=== PATIENT | male | born 1935 | race Caucasian/White ===

== ENCOUNTER 2017-01-06 07:28 | Outpatient (CLI) | payer MEDICARE, BC ==
[~2017-01-06] VITALS: Ht 172.7 cm; Wt 86.4 kg
--- NOTE | ~2017-01-06 | HEMODYNAMI ---
PATIENT:GARRETT HARLEY MEDICAL RECORD: [id number] : 39 LOCATION:PING ADMISSION DATE: 01/06/17 Generatedon:01/06/201710:24 Patient name: GARRETT HARLEY Patient #: [id number] SSN: D OB: 1935 Date of study: 01/06/2017 Page: Of Hemodynamic Procedure Report Patient Data Patient Demographics Procedure consent was obtained First Name: GARRETT Gender: Male Last Name: CHERRI : 1935 [facility] Initial: DESIREE Age: 81 year(s) Patient #: [id number] Race: Additional ID: [id number] Contact details Address: [place] [place] [address] State: [place] City: [place] Zip code: [address] Past Medical History Allergies Allergen Reaction Date Comments Reported TAWANA inhibitors 11/08/2015 TAWANA inhibitors, Cardura, Dyazide, iodine Other allergy 01/06/2017 Cardura, Levaquin, HCTZ, Triamterene, Pneumonia vaccine Iodine 01/06/2017 Admission Admission Data Admission Date: 01/06/2017 Admission Time: 7:28 Height (in.): 68 BSA: 2 (m2) Height (cm.): 172.72 BMI: 28.89 (kg/m2) Weight (lbs.): 190 Weight (kg.): 86.18 Lab Results Lab Result Date: 01/06/2017 Lab Result Time: 0:00 Biochemistry Name Units Result Min Max Creatinine mg/dl 1.7 --(----)-* 0.6 1.3 CBC Name Units Result Min Max Hemoglobin g/dl 10.4 *-(----)-- 13.5 17.5 Procedure Procedure Types Cath Procedure Diagnostic Procedure LHC LHC w/Coronaries w/Grafts PCI Procedure SVG-BMS/ENID Initial Miscellaneous Procedures Moderate Sedation up to 30 minutes Peripheral Cath Diagnostic Procedure Cath Peripheral Olfxl-Nqsaolb-Naz-Off Procedure Description Procedure Date Procedure Date: 01/06/2017 Procedure Start Time: 9:57 Procedure End Time: 10:24 Procedure Staff Name Function Ranjit Mejia MD Performing Physician Farzana Armas RT Scrub Eleazar Nava RN Nurse Karoline Boateng RT Monitor Procedure Data Cath Procedure Fluoroscopy Diagnostic fluoroscopy Total fluoroscopy Time: 8.7 time: 8.7 min min Diagnostic fluoroscopy Total fluoroscopy dose: dose: 2247 mGy 2247 mGy Contrast Material Contrast Material Type Amount (ml) Isovue 300 175 Entry Location Entry Primary Successful Side Size Upsize Upsize Entry Closure Succes sful Closure Location (Fr) 1 (Fr) 2 (Fr) Remarks Device Remarks Femoral Right 5 Fr 6 Fr Exoseal artery Short Estimated blood loss: 10 ml Diagnostic catheters Device Type Used For End Catheter Placement Cordis 5Fr Pigtail LV Angiography Catheter (MP) Cordis 5Fr Pigtail Abdominal Catheter (MP) aortogram with runoff Cordis 5Fr JL 4.0 Left Coronary Catheter (MP) Angiography Cordis 5Fr 3DRC Catheter Internal mammary (MP) arteriography Diagnostic Infinity 5Fr Right Coronary AR 2 MOD catheter Angiography Diagnostic Infinity 5Fr SVG Angiography AR 2 MOD catheter Diagnostic Infinity 5Fr SVG Angiography AR 2 MOD catheter Diagnostic Infinity 5Fr SVG Angiography MPA-2 catheter Procedure Complications No complications Procedure Medications Medication Administration Route Dosage Oxygen NC 2 l/min Heparin Flush Bag added to field 2 bags (1000units/500ml NS) 0.9% NaCl I.V. 100 ml/hr Fentanyl I.V. 50 mcg Versed I.V. 1 mg Fentanyl I.V. 50 mcg Versed I.V. 1 mg Heparin Bolus I.V. 4000 units Hemodynamics Rest BSA: 2 (m2) HGB: 10.4 (g/dl) O2 Consumption: Estimated: 206.13 (ml/min) O2 Consu mption indexed: Estimated:103.06 (ml/min/m) Heart Rate: 40 (bpm) Pressure Samples Time Site Value (mmHg) Purpose Heart Use Rate(bpm) 9:59 LV 133/39,51 Snapshot 61 Snapshots Pre Cath Intra NCS Post Cath Vital Signs Time Heart Resp SPO2 NIBP (mmHg) Rhythm Pain Sedation Rate (ipm) (%) Status Level (bpm) 9:28:09 81 20 96 151/80(125) NSR 0 (11) 10(A) , No pain 9:32:29 60 20 97 148/78(132) NSR 0 (11) 10(A) , No pain 9:36:47 59 19 98 150/80(122) NSR 0 (11) 10(A) , No pain 9:41:06 60 17 94 140/79(113) NSR 0 (11) 10(A) , No pain 9:45:21 59 16 95 134/73(114) NSR 0 (11) 10(A) , No pain 9:49:37 60 17 97 139/70(115) NSR 0 (11) 10(A) , No pain 9:53:55 60 16 98 135/67(112) NSR 0 (11) 10(A) , No pain 9:58:09 60 17 99 135/71(115) NSR 0 (11) 9(A) , No pain 10:02:25 60 18 96 133/65(105) NSR 0 (11) 9(A) , No pain 10:06:39 62 18 92 126/63(100) NSR 0 (11) 9(A) , No pain 10:10:51 60 17 92 118/65(96) NSR 0 (11) 9(A) , No pain 10:15:03 64 18 93 111/61(86) NSR 0 (11) 9(A) , No pain 10:19:09 60 18 94 117/66(95) NSR 0 (11) 9(A) , No pain 10:23:19 59 14 94 121/63(99) NSR 0 (11) 9(A) , No pain Medications Time Medication Route Dose Verified Delivered Reason Notes Effectiveness by by 9:44:11 Oxygen NC 2 Eleazar Bush Per physician l/min Elijah Nava RN RN 9:44:19 Heparin Flush added 2 Eleazar Bush used for Bag to bags Elijah Nava RN procedure (1000units/500ml field RN NS) 9:44:29 0.9% NaCl I.V. 100 Eleazar Bush Per physician ml/hr Elijah Nava RN RN 9:56:51 Fentanyl I.V. 50 Eleazar Bush for sedation mcg Elijah Nava RN RN 9:56:58 Versed I.V. 1 mg Eleazar Bush for sedation Elijah Nava RN RN 10:03:56 Fentanyl I.V. 50 Eleazar Bush for sedation mcg Elijah Nava RN RN 10:03:58 Versed I.V. 1 mg Eleazar Bush for sedation Elijah Nava RN RN 10:08:50 Heparin Bolus I.V. 4000 Eleazar Bush for units Elijah Nava RN anticoagulation telehealth coordinator Log Time Note 8:49:21 Patient Height : 172.72 cm 8:49:23 Patient Weight : 86.18 kg 9:07:31 Eleazar Nava RN sent for patient. Start room use. 9:07:32 Time tracking: Regular hours 9:07:36 Plan of Care:Hemodynamics will remain stable., Cardiac rhythm will remain stable., Comfort level will be maintained., Respiratory function will remain adequate., Patient/ family verbilizes understanding of procedure., Procedure tolerated without complication., Recovers from procedure without complications.. 9:26:55 Vital chart was started 9:29:52 Patient received from Pre/Post Procedure Room to [facility]3] 2 Alert and oriented. Tansferred to table in Supine position. 9:29:53 Warm blankets applied, and bishnu hugger turned on for patient comfort. 9:29:53 Correct patient and procedure confirmed by team. 9:29:54 Signed procedure consent form obtained from patient. 9:29:55 ECG and BP/O2 sat monitors applied to patient. 9:30:12 Rhythm: paced 9:30:14 Full Disclosure recording started 9:30:24 H&P Date Dictated: 01/01/2017 Within 30 days and on chart., H&P Addendum completed by physician on day of procedure. (MUST COMPLETE FOR ALL OUTPATIENTS). 9:30:47 Pre-procedure instructions explained to patient. 9:30:47 Pre-op teaching completed and patient verbalized understanding. 9:30:50 Family in patients room. 9:31:17 Patient NPO since Midnight. 9:33:29 Patient allergic to Other allergyCardura, Levaquin, HCTZ, Triamterene, Pneumonia vaccine 9:33:33 Patient allergic to Iodine 9:33:40 Is the patient allergic to Iodine/contrast media? Yes. 9:33:49 Was the patient premedicated? Yes 9:34:20 Is patient on blood thinner?Yes 9:34:22 ACC The patient was administered the following blood thiners within the last 24 hours: ACCPlavix 9:34:24 Patient diabetic? No. 9:40:37 Previous problem with sedation/anesthesia? No ? 9:40:38 Snore? Yes 9:40:39 Sleep apnea? No 9:40:39 Deviated septum? No 9:40:40 Opens mouth fully? Yes 9:40:46 Sticks out tongue? Yes 9:40:48 Airway obstruction? No ? 9:40:51 Dentures? Yes iN 9:40:57 Pre procedure: right dorsailis pedis pulse Doppler 9:40:59 Patient pain scale 0/10 ?. 9:41:33 IV patent on arrival in left hand with 0.9% NaCl at [facility]. 9:41:50 Lab Result : Creatinine 1.7 mg/dl 9:41:50 Lab Result : Hemoglobin 10.4 g/dl 9:41:53 Lab results completed and on chart. 9:41:57 Bilateral groins area was prepped with chlora-prep and draped in sterile fashion 9:41:58 Alarms reviewed by R. N. 9:41:58 Sharps counted by scrub and verified by R.N. 9:44:11 Oxygen 2 l/min NC was administered by Eleazar Nava RN; Per physician; 9:44:19 Heparin Flush Bag (1000units/500ml NS) 2 bags added to field was administered by Eleazar Nava RN; used for procedure; 9:44:29 0.9% NaCl 100 ml/hr I.V. was administered by Eleazar Naav RN; Per physician; 9:48:54 Baseline sample Acquired. 9:56:18 Final Timeout: patient, procedure, and site verified with staff and physician. All members of the team are in agreement. 9:56:19 Right groin site verified by team. 9:56:22 Physical assessment completed. ASA score P 2 - A patient with mild systemic disease as per Ranjit Mejia MD. 9:56:24 Sedation plan: IV Moderate Sedation Versed, Fentanyl 9:56:51 Fentanyl 50 mcg I.V. was administered by Eleazar Nava RN; for sedation; 9:56:58 Versed 1 mg I.V. was administered by Eleazar Nava RN; for sedation; 9:57:00 Procedure started. 9:57:05 Local anesthetic to right femoral artery with Lidocaine 2% by Ranjit Mejia MD.INITIAL ACCESS ONLY 9:57:13 A 5 Fr sheath was inserted into the Right Femoral artery 9:57:43 Use device set Femoral Dx 9:57:43 Acist Syringe opened to sterile field. 9:57:44 Bag Decanter opened to sterile field. 9:57:44 Medline Cath Pack opened to sterile field. 9:57:45 Terumo 5Fr [place] Sheath opened to sterile field. 9:57:45 [place] 260cm J .035 wire opened to sterile field. 9:57:46 Acist Hand Control opened to sterile field. 9:57:47 Acist Manifold opened to sterile field. 9:57:47 Diagnostic Infinity 5Fr Multipack catheter opened to sterile field. 9:57:48 Tegaderm 4 x 4 opened to sterile field. 9:57:54 A Cordis 5Fr Pigtail Catheter (MP) was advanced over the wire and used for LV Angiography. 9:59:20 LV gram done using BENDER 9:59:23 Injector settings: Ml/sec: 10, Volume: 20, 9:59:29 EF : 45 % 9:59:48 A Cordis 5Fr Pigtail Catheter (MP) was advanced over the wire and used for Abdominal aortogram with runoff. 10:00:19 Catheter removed. 10:01:20 A Cordis 5Fr JL 4.0 Catheter (MP) was advanced over the wire and used for Left Coronary Angiography. 10:01:41 Catheter removed. 10:03:21 A Cordis 5Fr 3DRC Catheter (MP) was advanced over the wire and used for Internal mammary arteriography.TO LAD 10:03:56 Fentanyl 50 mcg I.V. was administered by Eleazar Nava RN; for sedation; 10:03:58 Versed 1 mg I.V. was administered by Eleazar Nava RN; for sedation; 10:04:16 Catheter removed. 10:04:52 A Diagnostic Infinity 5Fr AR 2 MOD catheter was advanced over the wire and used for Right Coronary Angiography. 10:05:14 A Diagnostic Infinity 5Fr AR 2 MOD catheter was advanced over the wire and used for SVG Angiography.TO CIRC 10:05:48 A Diagnostic Infinity 5Fr AR 2 MOD catheter was advanced over the wire and used for SVG Angiography.TO DIAG 10:06:59 Catheter removed. 10:07:13 Terumo 6Fr [place] Sheath opened to sterile field. 10:07:14 [email or web address] BasixCompak Inflation Kit opened to sterile field. 10:07:14 Lane Whisper J 300cm 0.014 guide wire opened to sterile field. 10:08:50 Heparin Bolus 4000 units I.V. was administered by Eleazar Nava RN; for anticoagulation; 10:09:36 Medtronic Launcher 6Fr AR 2.0 SH guide catheter opened to sterile field. 10:09:52 Sheath upsized to a 6 Fr Short. 10:10:34 6 Fr AR 2.0 SH guide catheter was inserted over the wire 10:10:39 wHISPER wire advanced. 10:11:33 Inflation Number: 1 A Kartik OTW 2.25 x 18 stent was prepped and advanced across the Aorta Left -> 1st Diag. The stent was deployed at 17 TYRONE for 0:08 (min:sec). 10:12:04 Stent catheter was removed intact over wire. 10:12:05 Wire removed. 10:12:06 Guide catheter removed. 10:12:42 A Diagnostic Infinity 5Fr MPA-2 catheter was advanced over the wire and used for SVG Angiography.TO RCA 10:15:49 Catheter removed. 10:16:06 Sheath removed intact; hemostasis achieved with Exoseal to the Right Femoral artery. 10:16:13 Cordis 6Fr Exoseal opened to sterile field. 10:16:43 Procedure ended.(Physican Out) 10:17:11 Fluoroscopy time 08.70 minutes. 10:17:15 Flurop Dose total: 2247 10:17:15 Fluoroscopy dose: 2247 mGy 10:17:18 Contrast amount:Isovue 300 175ml. 10:17:19 Sharps counted by scrub and verified by R.N. 10:17:21 Insertion/operative site no bleeding no hematoma. 10:17:35 Post-op/insertion site Right Femoral artery dressed using a 4 x 4 and Tegaderm. 10:17:38 Post right femoral artery:stable, clean and dry 10:17:39 Post Procedure Pulses reassessed and unchanged 10:17:41 Post-procedure physical assessment completed. ASA score P 2 - A patient with mild systemic disease as per Ranjit Mejia MD. 10:17:46 Post procedure rhythm: unchanged. 10:17:48 Estimated blood loss: 10 ml 10:17:49 Post procedure instruction explained to patient.Patient verbalizes understanding. 10:17:50 Patient needs reinforcement of post procedure teaching. 10:18:09 Procedure type changed to Cath procedure, Diagnostic procedure, LHC, LHC w/Coronaries w/Grafts, PCI procedure, SVG-BMS/ENID Initial, Miscellaneous Procedures, Moderate Sedation up to 30 minutes, Peripheral Cath Diagnostic Procedure, Cath Peripheral, Vtczw-Klboscv-Hxa-Off 10:18:17 Procedure Complication : No complications 10:18:20 See physician's report for complete and final results. 10:20:29 Procedure and supply charges have been captured, reviewed, submitted and are correct. 10:24:00 Vital chart was stopped 10:24:01 Report given to Pre/Post Procedure Room. 10:24:06 Patient transfered to Pre/Post Procedure Room with Stretcher. 10:24:09 Procedure ended. 10:24:09 Full Disclosure recording stopped 10:24:14 End room use (Document Last) Intervention Summary Intervention Notes Time ActionType Lesion and Equipment Action# Pressure Duration Attributes Used 10:11:33 Place stent Aorta Left Kartik OTW 1 17 00:08 -> 1st Diag 2.25 x 18 stent Device Usage Item Name Manufacture Quantity Catalog Hospital Part Current Minimal Lot# / Number Charge Number Stock Stock Serial# Code Acist Acist 1 [id number] 224246 842581 20 Syringe Medical Systems Inc Bag Microtek 1 2002S 375634 15519 439728 5 Tongtech Inc. Medline Cardinal 1 [id number] 529560 71281 092822 5 Cath Pack Health Terumo 5Fr Terumo 1 [id number] 609661 485960 948926 [address] [place] [address] [facility] [address] Johnnie 1 [id number] 046096 733331 291367 30 260cm J .035 wire Acist Hand Acist 1 29478 271235 555590 038843 5 Meme Apps Medical Systems Inc Acist Acist 1 70906 653774 021416 517053 5 Hipscan Medical Systems Inc Diagnostic Cardinal 1 [id number] 962134 26534 847179 30 PapayaMobile 5Fr Multipack catheter Tegaderm 4 3M 1 1626W 030739 973002 960235 5 x 4 Cordis 5Fr Cardinal 1 586218 5 Pigtail Health Catheter (MP) Cordis 5Fr Cardinal 1 179967 5 JL 4.0 Health Catheter (MP) Cordis 5Fr Cardinal 1 190259 5 3DRC Health Catheter (MP) Diagnostic Cardinal 1 [id number] 974058 002215 094963 20 Infinity Health 5Fr AR 2 MOD catheter Terumo 6Fr Terumo 1 [id number] 639998 306725 545849 40 [place] Sheath Merit Merit 1 [id number] 010258 613875 010623 [address] Medical Infl[address] 1 [id number] 352605 140835 548952 5 Whisper J Vascular 300cm 0.014 guide wire Medtronic Medtronic 1 [id number] 774203 42229 430854 1 Launcher 6Fr AR 2.0 SH guide catheter [place] OTW Medtronic 1 [id number] 829483 21627 509836 5 [id number] 2.25 x 18 stent Diagnostic Cardinal 1 [id number] 610312 038571 056267 5 Infinity Health 5Fr MPA-2 catheter Cordis 6Fr Cardinal 1 [id number] 377534 612141 617241 10 [facility] Inspherion Signature Audit [place] Stage Time Signature Unsigned Intra-Procedure 01/06/2017 Karoline 10:24:37 AM Counts RT(R) Signatures Monitor : Karoline Signature : Counts RT Date : Time : [id number] [place] [address]
[~2017-01-06 07:28] MED LIST: ANUSOL-HC25 MG RC; BAYER CHEWABLE81 MG PO; BETAPACE 120 M120 MG PO; BETAPACE 80 MG80 MG PO; BETAPACE160 MG PO; COUMADIN5 MG PO; GRAPESEED EXTRACT PO; K-TAB10 MEQ PO; LASIX40 MG PO; LOTENSIN40 MG PO; PLAVIX75 MG PO; PRILOSEC20 MG PO
[2017-01-06] MEDS ORDERED: BAYER CHEWABLE81 MG PO (07:47)
[2017-01-06 08:01] VITALS: BP 137/70; Ht 172.7 cm; Wt 86.4 kg
[2017-01-06 08:16] LABS: BASOPHILS 0 % (0-2); EOSINOPHILS 0 % (0-7); HEMATOCRIT 33.3 % (42.0-54.0); HEMOGLOBIN 10.4 g/dL (13.5-17.5); IMMATURE GRANULOCYTES 0.5 % (0-5); MCH 26.9 pg (26.0-34.0); MCHC 31.2 g/dL (31.0-37.0); MEAN PLATELET VOLUME 9.9 fL (7.4-10.4); MONOCYTES 2.1 % (2-11); NEUTROPHILS 84.4 % (40-80); RBC 3.87 10x6/uL (4.20-6.10); RDW 15.7 % (11.5-14.5); WBC 4.4 10x3/uL (4.8-10.8)
[2017-01-06 08:20] LABS: PLATELET COUNT 210 10x3/uL (130-400)
[2017-01-06 08:33] LABS: ANION GAP 14.6 mmol/L (8-16); CALCIUM 8.2 mg/dL (8.5-10.1); CARBON DIOXIDE 23.5 mmol/L (21.0-32.0); CREATININE - SERUM 1.7 mg/dL (0.6-1.3); POTASSIUM - SERUM 4.1 mmol/L (3.5-5.1)
[2017-01-06 09:47] LABS: INR 1.39 (0.85-1.17)
--- NOTE | 2017-01-06 10:50 | NUR ---
2L NC, NO RESP DISTRESS NOTED. RIGHT GROIN 6F EXOSEAL CDI, NO BLEEDING OR HEMATOMA NOTED. NO C/O CHEST PAIN OR NAUSEA. APPRENTICE PAINTER BRUSH SHOWS PACED NSR @ 60. INSTRUCTED PT TO KEEP HEAD FLAT ON PILLOW AND RIGHT LEG STRAIGHT. VSS.
--- NOTE | 2017-01-06 11:20 | NUR ---
2L NC, NO RESP DISTRESS NOTED. RIGHT GROIN 6F EXOSEAL CDI, NO BLEEDING OR HEMATOMA NOTED. VSS. DR. TORRES AT BEDSIDE SPEAKING WITH PT AND FAMILY. CALL LIGHT WITHIN REACH.
--- NOTE | 2017-01-06 11:35 | NUR ---
2L NC, NO RESP DSITRESS NOTED. RIGHT GROIN 6F EXOSEAL CDI, NO BLEEDING OR HEMATOMA NOTED. VSS. NO C/O CHEST PAIN OR NAUSEA. WILL CONTINUE TO MONITOR.
--- NOTE | 2017-01-06 12:05 | NUR ---
NO C/O CHEST PAIN OR NAUSEA. RIGHT GROIN 6F EXOSEAL CDI, NO BLEEDING OR HEMATOMA NOTED. VSS. CALL LIGHT WITHIN REACH.
--- NOTE | 2017-01-06 12:53 | NUR ---
1250 PT MOSES PO FLUIDS WITH NO C/O. DRESSING TO RIGHT GROIN IS CDI, NO BLEEDING OR HEMATOMA NOTED. RR EVEN AND UNLABORED. VSS. AT BEDSIDE, PT DENIES NEEDS AT THIS TIME.
--- NOTE | 2017-01-06 13:31 | NUR ---
1330 DRESSING TO RIGHT GROIN IS CDI, AREA IS SOFT AND NONTENDER. RR EVEN AND UNLABORED. PT DENIES ANY C/O. FAMILY AT BEDSIDE. CALL LIGHT IN REACH.
--- NOTE | 2017-01-06 14:29 | NUR ---
1415 PT MOSES SANDWICH WITH NO C/O NAUSEA. IV DC'D WITH CATH INTACT. DRESSING TO RIGHT GROIN REMAINS CDI, AREA IS SOFT AND NONTENDER.
--- NOTE | 2017-01-06 15:22 | NUR ---
1430 PT SITTING UPRIGHT, STILL EATING SANDWICH AND GRAPES, DENIES ANY C/O. DRESSING TO RIGHT GROIN IS CDI, AREA IS SOFT AND NONTENDER. AT BEDSIDE. REVIEWED DC INSTRUCTIONS WITH PT AND WHO VERBALIZE UNDERSTANDING. 1445 IV DC'D WITH CATH INTACT. PT IS DRESSING FOR DC TO HOME. 1450 ASSISTED PT TO THE BATHROOM, PT VOIDED QS. PT ESCORTED TO PRIVATE AUTO VIA WC BY NURSE WITH SON DRIVING HIM HOME. PT DENIES ANY C/O AT TIME OF DC.
[2017-01-08] MEDS ORDERED: PREDNISONE20 MG PO (07:38)
--- NOTE | 2017-01-11 12:22 | OP ---
PATIENT NAME: GARRETT HARLEY MEDICAL RECORD: [id number] :37 LOCATION:D.CAT ADMISSION DATE: SURGEON: JETT TORRES MD OPERATION DATE: 01/06/17 PROCEDURES: 1. Percutaneous transluminal coronary angioplasty stent left anterior descending diagonal through vein graft. 2. Left heart catheterization. 3. Selective coronary angiography. 4. Left ventriculogram. 5. Vein graft angiography. 6. Left internal mammary artery angiography. INDICATION: 1. Angina. 2. Coronary artery disease. PROCEDURE IN DETAIL: After informed consent was obtained and after detailed explanation of risks, benefits, as well as alternative therapies, the patient elected to proceed with angiogram and angioplasty. The right femoral area was prepped and draped in a normal sterile fashion. The right femoral artery was cannulated via modified Seldinger technique with placement of 6-Nepali sheath. All catheters exchanged through this sheath. FINDINGS: The left ventriculogram was performed in standard 30 degree BENDER view, reveals preserved cardiac wall motion. Ejection fraction 50%. SELECTIVE CORONARY ANGIOGRAPHY: 1. The left main has a 90% stenosis distally. 2. Left anterior descending is totally occluded. 3. Left circumflex is totally occluded. 4. Right coronary artery is totally occluded. 5. The left internal mammary artery to the left anterior descending is patent. The distal left anterior descending is widely patent. Previously placed stent is widely patent. 6. Vein graft to the left anterior descending diagonal is patent. However, the stent distal to the vein graft has 80% in-stent restenosis. 7. Vein graft to the circumflex is widely patent. Distal circumflex is widely patent. 8. Vein graft to the right coronary artery is patent. There is a relatively large PLV branch that has an 80+% stenosis at its ostium. PTCA STENT OF THE LEFT ANTERIOR DESCENDING DIAGONAL THROUGH THE VEIN GRAFT: The stent used is a 2.25 X 18 millimeter [place]. The result was 0% residual stenosis. OVERALL IMPRESSION: Successful percutaneous transluminal coronary angioplasty stent of the vein graft of the left anterior descending diagonal through the vein graft going from 80% in-stent restenosis to 0% residual stenosis. Can approach the right coronary artery through the vein graft in the near future if need be. OPERATIVE REPORT [id number] GARRETT HARLEY JETT TORRES MD at 1222 CC: [id number] DICTATION DATE: 01/06/17 1500 SEAL SKINNER: DM 01/07/17 1208 DEP CLI 01/06/17 [facility] [address] [place] [address]
== END 2017-01-06 14:50 | disposition home or self-care (01) ==
LOC: D.CATH 07:28
PROVIDERS: Internal Medicine Interventional Cardiology
DX: I25.119 Atherosclerotic heart disease of native coronary artery with unspecified angina pectoris (principal); T82.855A Stenosis of coronary artery stent, initial encounter; Z01.812 Encounter for preprocedural laboratory examination

== ENCOUNTER → 2017-01-08 07:21 | Outpatient (CLI) | payer MEDICARE, BC ==
[~2017-01-08] VITALS: Ht 172.7 cm; Wt 86.8 kg
--- NOTE | ~2017-01-08 | HEMODYNAMI ---
PATIENT:GARRETT HARLEY MEDICAL RECORD: [id number] : 37 LOCATION:PING ADMISSION DATE: 01/08/17 Generatedon:01/08/20179:37 Patient name: GARRETT HARLEY Patient #: [id number] SSN: D OB: 1935 Date of study: 01/08/2017 Page: Of Hemodynamic Procedure Report Patient Data Patient Demographics Procedure consent was obtained First Name: GARRETT Gender: Male Last Name: CHERRI : 1935 [facility] Initial: DESIREE Age: 81 year(s) Patient #: [id number] Race: Additional ID: [id number] Contact details Address: [place] [address] State: [place] City: [place] Zip code: [address] Past Medical History Allergies Allergen Reaction Date Comments Reported TAWANA inhibitors 11/08/2015 TAWANA inhibitors, Cardura, Dyazide, iodine Other allergy 01/06/2017 Cardura, Levaquin, HCTZ, Triamterene, Pneumonia vaccine Iodine 01/06/2017 Other allergy 01/08/2017 Iodine, Cardure, TAWANA, Dyazide Admission Admission Data Admission Date: 01/08/2017 Admission Time: 7:21 Height (in.): 68 BSA: 2.01 (m2) Height (cm.): 172.72 BMI: 29.1 (kg/m2) Weight (lbs.): 191.36 Weight (kg.): 86.8 Lab Results Lab Result Date: 01/06/2017 Lab Result Time: 0:00 Biochemistry Name Units Result Min Max Creatinine mg/dl 1.7 --(----)-* 0.6 1.3 CBC Name Units Result Min Max Hemoglobin g/dl 10.4 *-(----)-- 13.5 17.5 Procedure Procedure Types Cath Procedure PCI Procedure Coronary Stent Initial Miscellaneous Procedures Moderate Sedation up to 15 minutes Procedure Description Procedure Date Procedure Date: 01/08/2017 Procedure Start Time: 9:22 Procedure End Time: 9:35 Procedure Staff Name Function Ranjit Mejia MD Performing Physician Stephen Laguna RT Scrub Hallie Maki RN Nurse Farzana Armas RT Monitor Procedure Data Cath Procedure Fluoroscopy Diagnostic fluoroscopy Total fluoroscopy Time: 1.7 time: 1.7 min min Diagnostic fluoroscopy Total fluoroscopy dose: 255 dose: 255 mGy mGy Contrast Material Contrast Material Type Amount (ml) Isovue 300 33 Entry Location Entry Primary Successful Side Size Upsize Upsize Entry Closure Succes sful Closure Location (Fr) 1 (Fr) 2 (Fr) Remarks Device Remarks Femoral Right 5 Fr 6 Fr Exoseal artery Short Estimated blood loss: 10 ml Procedure Complications No complications Procedure Medications Medication Administration Route Dosage Oxygen NC 2 l/min Lidocaine 2% added to field 20 Heparin Flush Bag added to field 2 bags (1000units/500ml NS) 0.9% NaCl I.V. 100 ml/hr Versed I.V. 1 mg Fentanyl I.V. 50 mcg Versed I.V. 0.5 mg Fentanyl I.V. 25 mcg Versed I.V. 0.5 mg Fentanyl I.V. 25 mcg Heparin Bolus I.V. 4000 units Hemodynamics Rest BSA: 2.01 (m2) HGB: 10.4 (g/dl) O2 Consumption: Estimated: 222.89 (ml/min) O2 Co nsumption indexed: Estimated:110.89 (ml/min/m) Heart Rate: 61 (bpm) Snapshots Pre Cath Intra NCS Post Cath Vital Signs Time Heart Resp SPO2 etCO2 RU7ziju NIBP (mmHg) Rhythm Pain Sedation Rate (ipm) (%) (mmHg) (mmHg) Status Level (bpm) 9:03:00 61 19 100 0 0 158/92(104) Paced 0 (11) 10(A) , No pain 9:07:20 60 18 100 0 0 153/88(132) Paced 0 (11) 10(A) , No pain 9:11:38 60 16 100 0 0 140/87(127) Paced 0 (11) 9(A) , No pain 9:15:52 60 15 99 0 0 140/82(119) Paced 0 (11) 9(A) , No pain 9:20:08 59 15 99 0 0 128/79(106) Paced 0 (11) 9(A) , No pain 9:24:20 60 16 99 0 0 123/72(102) Paced 0 (11) 9(A) , No pain 9:28:30 59 16 98 0 0 123/73(95) Paced 0 (11) 9(A) , No pain 9:32:42 59 16 99 0 0 121/69(101) Paced 0 (11) 10(A) , No pain Medications Time Medication Route Dose Verified Delivered Reason Notes Effectiveness by by 9:02:19 Oxygen NC 2 Ranjit Buffie used for l/min Roberto Maki RN procedure 9:02:26 Lidocaine 2% added 20ml Ranjit Ranjit for local to vial Roberto Mejia MD anesthetic field 9:02:34 Heparin Flush added 2 Ranjit Arnjit used for Bag to bags Roberto Mejia MD procedure (1000units/500ml field NS) 9:02:44 0.9% NaCl I.V. 100 Ranjit Buffie Per physician ml/hr Roberto Maki RN 9:08:38 Versed I.V. 1 mg Ranjit Sterling for sedation Roberto Maki RN 9:08:44 Fentanyl I.V. 50 Ranjit Buffie for sedation mcg Roberto Maki RN 9:18:08 Versed I.V. 0.5 Ranjit Buffie for sedation mg Roberto Maki RN 9:18:13 Fentanyl I.V. 25 Ranjit Garciaie for sedation mcg Roberto Maki RN 9:22:18 Versed I.V. 0.5 Ranjit Garciaie for sedation mg Roberto Maki RN 9:22:22 Fentanyl I.V. 25 Ranjit Buffie for sedation mcg Roberto Maki RN 9:26:58 Heparin Bolus I.V. 4000 Ranjitfatoumata Garciaie for verifie d units Roberto Maki RN anticoagulation with dr mejia Procedure Log Time Note 8:46:13 Patient Height : 68 cm 8:46:24 Patient Weight : 191.36 kg 8:47:15 Diagnostic Cath status Elective 8:47:18 Farzana OLIVEIRA(R) sent for patient. Start room use. 8:47:20 Time tracking: Regular hours 8:47:25 Plan of Care:Hemodynamics will remain stable., Cardiac rhythm will remain stable., Comfort level will be maintained., Respiratory function will remain adequate., Patient/ family verbilizes understanding of procedure., Procedure tolerated without complication., Recovers from procedure without complications.. 8:54:01 Patient received from Pre/Post Procedure Room to CCL 1 Alert and oriented. Tansferred to table in Supine position. 8:54:02 Warm blankets applied, and bishnu hugger turned on for patient comfort. 8:54:03 Correct patient and procedure confirmed by team. 8:54:04 Signed procedure consent form obtained from patient. 8:54:04 ECG and BP/O2 sat monitors applied to patient. 9:01:51 Vital chart was started 9:02:19 Oxygen 2 l/min NC was administered by Hallie Maki RN; used for procedure; 9:02:26 Lidocaine 2% 20ml vial added to field was administered by Ranjit Mejia MD; for local anesthetic; 9:02:34 Heparin Flush Bag (1000units/500ml NS) 2 bags added to field was administered by Ranjit Mejia MD; used for procedure; 9:02:44 0.9% NaCl 100 ml/hr I.V. was administered by Hallie Maki RN; Per physician; 9:05:13 Baseline sample Acquired. 9:05:18 Rhythm: sinus rhythm 9:05:20 Full Disclosure recording started 9:05:31 H&P Date Dictated: 01/07/2017 Within 30 days and on chart., H&P Addendum completed by physician on day of procedure. (MUST COMPLETE FOR ALL OUTPATIENTS). 9:05:34 Pre-procedure instructions explained to patient. 9:05:36 Family in waiting room. 9:05:38 Patient NPO since Midnight. 9:06:28 Patient allergic to Other allergyIodine, Cardure, TAWANA, Dyazide 9:06:33 Is the patient allergic to Iodine/contrast media? Yes. 9:06:35 Was the patient premedicated? Yes 9:06:37 Is patient on blood thinner?Yes 9:06:47 Patient diabetic? No. 9:06:59 Snore? Yes 9:07:01 Sleep apnea? Yes 9:07:10 Airway obstruction? Yes COPD 9:07:15 Dentures? No ? 9:07:31 Patient pain scale 0/10 "twinge". 9:07:37 IV patent on arrival in left hand with 0.9% NaCl at KVO. 9:07:51 Lab results completed and on chart. 9:07:55 Right groin area was prepped with chlora-prep and draped in sterile fashion 9:07:57 Sharps counted by scrub and verified by RRoxanna 9:08:07 Physician arrived 9:08:09 --------ALL STOP TIME OUT------ 9:08:11 Final Timeout: patient, procedure, and site verified with staff and physician. All members of the team are in agreement. 9:08:17 Right groin site verified by team. 9:08:32 Physical assessment completed. ASA score P 3 - A patient with severe systemic disease as per Ranjit Mejia MD. 9:08:36 Sedation plan: IV Moderate Sedation Versed, Fentanyl 9:08:38 Versed 1 mg I.V. was administered by Hallie Maki RN; for sedation; 9:08:44 Fentanyl 50 mcg I.V. was administered by Hallie Maki RN; for sedation; 9:08:45 Use device set Femoral PCI 9:08:46 Acist Syringe opened to sterile field. 9:08:46 Acist Hand Control opened to sterile field. 9:08:47 Bag Decanter opened to sterile field. 9:08:47 Medline Cath Pack opened to sterile field. 9:08:48 Terumo 6Fr [place] Sheath opened to sterile field. 9:08:48 St Johnnie 260cm J .035 wire opened to sterile field. 9:08:49 Merit BasixCompak Inflation Kit opened to sterile field. 9:08:49 Acist Manifold opened to sterile field. 9:08:50 Tegaderm 4 x 4 opened to sterile field. 9:10:00 Lane Whisper J 300cm 0.014 guide wire opened to sterile field. 9:18:08 Versed 0.5 mg I.V. was administered by Hallie Maki RN; for sedation; 9:18:13 Fentanyl 25 mcg I.V. was administered by Hallie Maki RN; for sedation; 9:18:38 Zero performed for pressure channel P1 9:21:55 Procedure started. 9:22:18 Versed 0.5 mg I.V. was administered by Hallie Maki RN; for sedation; 9:22:19 Gocellatronic Launcher 6Fr MB 1 guide catheter opened to sterile field. 9:22:22 Fentanyl 25 mcg I.V. was administered by Hallie Maki RN; for sedation; 9:22:23 Local anesthetic to right femoral artery with Lidocaine 2% by Ranjit Mejia MD.INITIAL ACCESS ONLY 9:24:33 Terumo 5Fr [place] Sheath opened to sterile field. 9:24:49 A 5 Fr sheath was inserted into the Right Femoral artery 9:25:21 Sheath upsized to a 6 Fr Short. 9:25:57 used to upsize to 6 fr because of scar tissue 9:26:26 Study PCI Site: Vein Graft dRCA has 90% stenosis. 9:26:36 6 Fr MB 1 guide catheter was inserted over the wire 9:26:43 Whispr wire advanced. 9::58 Heparin Bolus 4000 units I.V. was administered by Hallie Maki RN; for anticoagulation; verified with dr mejia 9:31:16 Inflation Number: 1 A [place] OTW 2.5 x 08 stent was prepped and advanced across the Aorta Right -> Dist RCA. The stent was deployed at 13 TYRONE for 0:10 (min:sec). 9:32:30 Cordis 6Fr Exoseal opened to sterile field. 9:32:40 Stent catheter was removed intact over wire. 9:32:41 Wire removed. 9:32:41 Guide catheter removed. 9:32:58 Sheath removed intact; hemostasis achieved with Exoseal to the Right Femoral artery. 9:33:02 Procedure ended.(Physican Out) 9:33:18 Fluoroscopy time 01.70 minutes. 9:33:24 Fluoroscopy dose: 255 mGy 9:33:24 Flurop Dose total: 255 9:33:29 Contrast amount:Isovue 300 33ml. 9:33:30 Sharps counted by scrub and verified by R.N. 9:33:37 Insertion/operative site no bleeding no hematoma. 9:33:55 Post Procedure Pulses reassessed and unchanged 9:34:00 Post-procedure physical assessment completed. ASA score P 3 - A patient with severe systemic disease as per Ranjit Mejia MD. 9:34:07 Post procedure rhythm: unchanged. 9:34:10 Estimated blood loss: 10 ml 9:34:14 Post procedure instruction explained to patient.Patient verbalizes understanding. 9:34:23 Procedure and supply charges have been captured, reviewed, submitted and are correct. 9:34:49 Procedure Complication : No complications 9:34:53 Vital chart was stopped 9:34:55 See physician's report for complete and final results. 9:34:58 Report given to Pre/Post Procedure Room. 9:35:02 Patient transfered to Pre/Post Procedure Room with Stretcher. 9:35:05 Procedure ended. 9:35:05 Full Disclosure recording stopped 9:35:12 End room use (Document Last) Intervention Summary Intervention Notes Time ActionType Lesion and Equipment Action# Pressure Duration Attributes Used 9:31:16 Place stent Aorta Right [place] OTW 1 13 00:10 -> Dist RCA 2.5 x 08 stent Device Usage Item Name Manufacture Quantity Catalog Hospital Part Current Minimal Lot# / Number Charge Number Stock Stock Serial# Code Acist Acist 1 04868 015163 225433 684919 20 Syringe Medical Systems Inc Acist Hand Acist 1 37156 989569 026369 833970 5 [id number] Digital Medical Systems Inc Bag Microtek 1 2002S 686549 31477 211924 5 Tweet Category Inc. Medline Cardinal 1 [id number] 869054 70751 303413 5 [facility] Terumo 6Fr Terumo 1 [id number] 521035 006861 121880 [address] [facility] Johnnie 1 046166 520255 091471 134942 30 260cm J .035 wire Merit Merit 1 [id number] 879193 079191 263711 15 BasixYashi Medical Inflation Kit Acist Acist 1 51880 301769 819649 701384 5 Collect Medical Systems Inc Tegaderm 4 3M 1 1626W 212868 817667 8310[address] 1 [id number] 274922 765798 154911 5 Whisper J Vascular 300cm 0.014 guide wire Medtronic Medtronic 1 [id number] 375604 65213 991738 1 Launcher 6Fr MB 1 guide catheter Terumo 5Fr Terumo 1 [id number] 268754 941995 461850 40 [place] Sheath Kartik OTW Medtronic 1 [id number] 329349 24332 622980 5 [id number] 2.5 x 08 stent Cordis 6Fr Cardinal 1 EX600 829151 007623 930218 10 SmartAngels.fr Signature Audit Dorr Stage Time Signature Unsigned Intra-Procedure 01/08/2017 Farzana Armas 9:37:34 AM RT(R) Signatures Monitor : Farzana Armas Signature : RT Date : Time : [facility] [address] [place] [address]
[~2017-01-08 07:21] MED LIST changes: +PREDNISONE20 MG PO
[2017-01-08 07:42] VITALS: BP 140/74; Ht 172.7 cm; Wt 86.8 kg
[2017-01-08 07:58] LABS: BASOPHILS 0 % (0-2); EOSINOPHILS 0 % (0-7); HEMATOCRIT 33.2 % (42.0-54.0); HEMOGLOBIN 10.3 g/dL (13.5-17.5); IMMATURE GRANULOCYTES 0.4 % (0-5); LYMPHOCYTES 3.4 % (15-50); MCV 86.9 fL (80.0-100.0); MEAN PLATELET VOLUME 10.2 fL (7.4-10.4); MONOCYTES 3.4 % (2-11); NEUTROPHILS 92.8 % (40-80); PLATELET COUNT 195 10x3/uL (130-400); RBC 3.82 10x6/uL (4.20-6.10); RDW 15.9 % (11.5-14.5)
[2017-01-08 08:25] LABS: CALCIUM 8.4 mg/dL (8.5-10.1); CARBON DIOXIDE 25.2 mmol/L (21.0-32.0); CREATININE - SERUM 1.7 mg/dL (0.6-1.3); POTASSIUM - SERUM 4.2 mmol/L (3.5-5.1)
[2017-01-08 08:27] LABS: WBC 12.8 10x3/uL (4.8-10.8)
[2017-01-08 08:49] LABS: INR 1.35 (0.85-1.17); PROTIME 16.6 SECONDS (11.6-15.0)
--- NOTE | 2017-01-08 09:45 | NUR ---
7767 RECIEVED TO ROOM VIA STRETCHER FROM SECTIONIZER WITH 6 FR EXOSEAL R/GROIN CDI NO BLEEDING NO HEMATOMA NOTED. REPORTS OF ONE STENT TO THE GRAFT OF RCA. INSTRUCTED PATIENT TO KEEP HEAD FLAT ON PILLOW WITH RLE STRAIGHT FAMILY AT SIDE. VSS WITH PACED RATE OF 60
--- NOTE | 2017-01-08 10:15 | NUR ---
1015 RESTING QUIETLY WITH VSS HR PACED AT 60 NO DISTRESS NOTED. B6 FR EXOSEAL R/GROIN CDI NO BLEEDING NO HEMATOMA NOTED. INSTRUCTED PATIENT TO KEEP HEAD FLAT ON PILLOW WITH RLE STRAIGHT
--- NOTE | 2017-01-08 10:45 | NUR ---
NO CHANGE IN ASSESSMENT. R/GROIN STABLE WITH NO DISTRESS NOTED
--- NOTE | 2017-01-08 11:20 | NUR ---
CHEST PAIN DENIED WITH VSS. R/GROIN CDI NO BLEEDING NO HEMATOMA NOTED
--- NOTE | 2017-01-08 12:34 | NUR ---
RESTING QUIETLY NO DISTRESS NOTED. R/GROIN CDI
--- NOTE | 2017-01-08 13:00 | NUR ---
REPOSITIONED TO SITTING WITH HOB UP 45 DEGREES CHEST PAIN IS DENIED. 6 FR EXOSEAL R/GROIN CDI NO C/O
--- NOTE | 2017-01-08 13:28 | NUR ---
VERBAL AND WRITTEN DISCHARGE GONE OVER WITH PATIENT AND FAMILY. PIV REMOVED WITH DRESSING APPLIED. PATIENT UP TO GET DRESSED FOR DISCHARGE HOME
--- NOTE | 2017-01-08 14:03 | NUR ---
LEFT VIA WC TO PARKING WITH FAMILY TO DRIVE HOME CHEST PAIN DENIED WITH DRESSING CDI
--- NOTE | 2017-01-13 13:54 | OP ---
PATIENT NAME: GARRETT HARLEY MEDICAL RECORD: [id number] :37 LOCATION:D.CAT ADMISSION DATE: SURGEON: JETT TORRES MD OPERATION DATE: 01/08/17 DATE OF OPERATION: 01/08/2017 PROCEDURES: 1. PTCA stent RCA through patent vein graft. 2. Selective coronary and vein graft angiography. INDICATION: Angina and coronary artery disease. PROCEDURE: After informed consent was obtained and after a detailed explanation of risks, benefits as well as alternative therapies, the patient elected to proceed with angiogram and angioplasty. The right femoral area was prepped and draped in normal sterile fashion. The right femoral artery was cannulated via modified Seldinger technique with placement of 6-Malian sheath. All catheters exchanged through this sheath. FINDINGS: The right coronary has an 80+ percent stenosis after the patent vein graft. This was addressed with a 2.5 x 8 mm [place] stent. Result was 0% residual stenosis. OVERALL IMPRESSION: Successful percutaneous transluminal coronary angioplasty stent of the right coronary artery going from 80% initial stenosis to 0% residual stenosis. TRANSINT:[id number] Voice Confirmation ID: [id number] DOCUMENT ID: [id number] JETT TORRES MD at 1354 CC: [id number] DICTATION DATE: 01/08/17 0933 CASING CREW PUSHER: 01/08/17 1009 DEP CLI 01/08/17 [facility] [address] [place] [address]
--- NOTE | 2017-01-13 13:54 | HP ---
PATIENT: GARRETT HARLEY MEDICAL RECORD: [id number] ACCOUNT: [id number] LOCATION:PING : 39 ADMISSION DATE: 01/08/17 HISTORY AND PHYSICAL EXAMINATION PROBLEM LIST: 1. Angina. 2. Coronary artery disease. 3. Previous coronary artery bypass graft surgery. 4. Peripheral vascular disease. 5. Hypertension. 6. Hyperlipidemia. HISTORY OF PRESENT ILLNESS: The patient presents with anginal symptomatology. He was found to have two vessel coronary artery disease of the left anterior descending diagonal as well as the right coronary artery. He underwent successful percutaneous transluminal coronary angioplasty stent of the left anterior descending diagonal. He is now brought back for percutaneous transluminal coronary angioplasty of the right coronary artery through the patent vein graft. PHYSICAL EXAMINATION: HEAD, EYES, EARS, NOSE, AND THROAT: Benign. NECK: Supple. No jugular venous distention. Carotid upstroke plus two bilaterally without bruits. LUNGS: Overall clear to auscultation and percussion. HEART: Regular. Normal S1, normal S2. No S3, no S4. No murmurs. BONES, JOINTS, EXTREMITIES: No clubbing, cyanosis, or edema. OVERALL IMPRESSION: Anginal symptomatology with significant disease of the right coronary artery. Will proceed with percutaneous transluminal coronary angioplasty stent of the right coronary artery. JETT TORRES MD at 1354 CC: [id number] DICTATION DATE: 01/08/17 0800 DIRECTOR COMPLIANCE: DM 01/09/17 0650 DEP CLI 01/08/17 [id number] [place] [address]
== END | disposition home or self-care (01) ==
LOC: D.CATH 07:21
PROVIDERS: Internal Medicine Interventional Cardiology
DX: I25.119 Atherosclerotic heart disease of native coronary artery with unspecified angina pectoris (principal); I73.9 Peripheral vascular disease, unspecified; I10 Essential (primary) hypertension; E78.5 Hyperlipidemia, unspecified; Z01.812 Encounter for preprocedural laboratory examination

== ENCOUNTER 2017-01-09 10:46 | Inpatient (IN) | payer MEDICARE, BC ==
[~2017-01-09] VITALS: Ht 172.7 cm; Wt 82.0 kg
[2017-01-09 11:18] LABS: APPEARANCE CLEAR (CLEAR); BILIRUBIN NEGATIVE (NEGATIVE); COLOR YELLOW (YELLOW); GLUCOSE NEGATIVE (NEGATIVE); KETONE NEGATIVE (NEGATIVE); LEUKOCYTE ESTERASE NEGATIVE (NEGATIVE); NITRITE NEGATIVE (NEGATIVE); PROTEIN NEGATIVE (NEGATIVE); UROBILINOGEN NORMAL (NORMAL)
[2017-01-09 11:44] LABS: ALBUMIN 2.9 g/dL (3.4-5.0); ANION GAP 12.9 mmol/L (8-16); BILIRUBIN - TOTAL 0.43 mg/dL (0.2-1.3); CALCIUM 8.3 mg/dL (8.5-10.1); CARBON DIOXIDE 23.4 mmol/L (21.0-32.0); CREATININE - SERUM 2.1 mg/dL (0.6-1.3); POTASSIUM - SERUM 4.3 mmol/L (3.5-5.1); PROTEIN - SERUM 7.4 g/dL (6.4-8.2)
[2017-01-09 11:46] LABS: APTT 25.1 SECONDS (22.8-39.4); INR 1.39 (0.85-1.17); PROTIME 16.9 SECONDS (11.6-15.0)
--- NOTE | 2017-01-09 13:45 | NUR ---
TRANSFER FROM ER BY W/C. LALIINTED TO ROOM. CALL LIGHT IN REACH. WILL CONT. PLAN OF CARE.
[2017-01-09 13:59] VITALS: BP 145/75; Ht 172.7 cm; Wt 82.0 kg
[2017-01-09 15:35] LABS: HEMOGLOBIN A1C 6.9 % (4.8-6.0)
--- NOTE | 2017-01-09 16:52 | NUR ---
HAS URINATED 700CC URINE WITH 151CC RESIDULE.
[2017-01-09 20:00] VITALS: BP 142/97
--- NOTE | 2017-01-09 22:07 | NUR ---
PT ASSISTED TO TAKE SHOWER AT THIS TIME. SPOUSE IN ROOM WITH PT. LINENS CHANGED. PT TOLERATING ACTIVITY WELL. WILL MONITOR.
[2017-01-10] VITALS: BP 131/59
--- NOTE | 2017-01-10 03:30 | NUR ---
PT RESTING WELL WITHOUT C/O OR DISTRESS NOTED.
[2017-01-10 05:10] LABS: BASOPHILS 0.1 % (0-2); EOSINOPHILS 0 % (0-7); HEMATOCRIT 31.4 % (42.0-54.0); HEMOGLOBIN 9.9 g/dL (13.5-17.5); IMMATURE GRANULOCYTES 0.8 % (0-5); LYMPHOCYTES 7.5 % (15-50); MCH 26.8 pg (26.0-34.0); MCHC 31.5 g/dL (31.0-37.0); MCV 85.1 fL (80.0-100.0); MEAN PLATELET VOLUME 10.1 fL (7.4-10.4); MONOCYTES 7.6 % (2-11); PLATELET COUNT 171 10x3/uL (130-400); RBC 3.69 10x6/uL (4.20-6.10); RDW 15.9 % (11.5-14.5)
[2017-01-10 05:11] LABS: WBC 8.3 10x3/uL (4.8-10.8)
[2017-01-10 05:35] LABS: ANION GAP 9.9 mmol/L (8-16); CALCIUM 8.6 mg/dL (8.5-10.1); CREATININE - SERUM 2.1 mg/dL (0.6-1.3)
[2017-01-10 05:38] LABS: CARBON DIOXIDE 30.1 mmol/L (21.0-32.0)
[2017-01-10 07:47] VITALS: BP 136/88
[2017-01-10 11:41] VITALS: BP 132/55
[2017-01-10 16:12] VITALS: BP 131/57
[2017-01-10 19:00] VITALS: BP 127/54
--- NOTE | 2017-01-10 19:30 | NUR ---
RESUMED CARE OF PT, LYING IN BED RESPIRATIONS EVEN AND UNLABORED ON 2LPM VIA NC. 62 PACED ON TELEMETRY. RIGHT FOREARM SALINE LOCKED. PLAN OF CARE DISCUSSED. CALL LIGHT IN REACH. NO NEEDS NOTED AT THIS TIME. WILL CONTINUE TO MONITOR. SEE NURSE ASSESSMENT.
--- NOTE | 2017-01-11 01:04 | NUR ---
CALL LIGHT IN REACH, WILL CONTINUE WITH PLAN OF CARE.
[2017-01-11 04:00] VITALS: BP 109/59
[2017-01-11 06:13] LABS: ANION GAP 8.3 mmol/L (8-16); CALCIUM 8.8 mg/dL (8.5-10.1); CARBON DIOXIDE 36.4 mmol/L (21.0-32.0); CREATININE - SERUM 1.8 mg/dL (0.6-1.3); POTASSIUM - SERUM 3.7 mmol/L (3.5-5.1)
--- NOTE | 2017-01-11 06:26 | NUR ---
NO CHANGES FROM PREVIOUS ASSESSMENT, 60 PACED ON TELEMETRY
--- NOTE | 2017-01-11 07:30 | NUR ---
RECEIVED PT IN BED WITH EYES CLOSED RESP UNLABORED NAD NOTED FAMILY AT BEDSIDE
[2017-01-11 08:00] VITALS: BP 126/59
--- NOTE | 2017-01-11 14:08 | NUR ---
Patient Name: GARRETT HARLEY Admission Status: ER Accout number: [id number] Admission Date: 01-09-2017 : 1935 Admission Diagnosis: Attending: RAN Current LOS: 2 Anticipated DC Date: 01-11-2017 Planned Disposition: Home Primary Insurance: MEDICARE A & B Discharge Planning Comments: * Is the patient Alert and Oriented? Yes 0 * How many steps to enter\exit or inside your home? 1 0 * PCP DR. GARCIAS 0 * Pharmacy [facility], [facility] 0 * Preadmission Environment Home with Family 0 * ADLs Independent 0 * Equipment Cane Nebulizer Other Walker 0 * Other Equipment INR MACHINE NO MEDICAL EQUIPMENT PROVIDER PREFERENCE 0 * List name and contact numbers for known caregivers / representatives who currently or will assist patient after discharge: TOM HARLEY, SPOUSE, 0 * Community resources currently utilized None 0 * Please name any agencies selected above. NONE 0 * Additional services required to return to the preadmission environment? No 0 * Can the patient safely return to the preadmission environment? Yes 0 * Has this patient been hospitalized within the prior 30 days at any hospital? No 0 CM MET WITH PT AND SPOUSE IN ROOM TO DISCUSS DISCHARGE PLANNING AND NEEDS. PT REPORTS LIVING AT HOME INDEPENDENTLY WITH SPOUSE. PT HAS CANE, WALKER, NEBULIZER AND INR MACHINE WITH NO MEDICAL EQUIPMENT PROVIDER PREFERENCE AND NO OUTSIDE SERVICES ASSISTING IN THE HOME. CM DISCUSSED AVAILABILITY OF HOME HEALTH, REHAB SERVICES AND MEDICAL EQUIPMENT. PT DENIES DISCHARGE NEEDS, PT'S SPOUSE WILL TRANSPORT PT FOR DISCHARGE HOME. IMPORTANT MESSAGE FROM MEDICARE PROVIDED AND EXPLAINED Superintendent Maintenance: Ry Diallo
[2017-01-11 15:23] LABS: INR 1.86 (0.85-1.17); PROTIME 21.4 SECONDS (11.6-15.0)
--- NOTE | 2017-01-11 16:05 | NUR ---
REVIEWED DISCHARGE INSTRUCTIONS WITH PT AND STATE UNDERSTANDING COPY GIVEN DCD SALINE LOCK TO RFA WITH IV CATHETER INTACT SITE FREE OF REDNESS AND EDEMA PT DISCHARGED HOME IN STABLE CONDITION LEFT UNIT VIA W/C WITH ALL PERSONAL BELONGINGS
--- NOTE | 2017-01-13 13:54 | DS ---
PATIENT:GARRETT HARLEY :[birth year] MEDICAL RECORD: [id number] DISCHARGE SUMMARY ADMISSION DATE: 01/09/17 DISCHARGE DATE: 01/11/17 DISCHARGE DIAGNOSES: 1. Fluid overload. 2. Congestive heart failure, chronic systolic dysfunction. 3. Coronary artery disease. 4. Previous percutaneous transluminal coronary angioplasty stent. 5. Diabetes. 6. Hypertension. HOSPITAL COURSE: Mr. Harley had skipped his diuretic for 2-vessel PTCA stent last Wednesday and Wednesday. He of course got IV fluids with the procedures. He came back in a fluid overloaded state, responded to IV diuretics, discharged home with no change in his medications, go back to Lasix that he was on previously. Follow up with [facility] as previously scheduled. TRANSINT:[id number] Voice Confirmation ID: [id number] DOCUMENT ID: [id number] JETT TORRES MD at 1354 CC: [id number] DICTATION DATE: 01/11/17 1223 VULCANIZER: 01/12/17 0125 DIS IN 01/11/17 [facility] [address] [place] [address]
--- NOTE | 2017-01-13 13:54 | HP ---
PATIENT: GARRETT HARLEY MEDICAL RECORD: [id number] ACCOUNT: [id number] LOCATION:D. D.2114 : 39 ADMISSION DATE: 01/09/17 HISTORY AND PHYSICAL EXAMINATION DATE OF SERVICE: 01/09/2017 ADMITTING DIAGNOSES: 1. Congestive heart failure. 2. Chronic systolic dysfunction. 3. Cardiomyopathy. 4. Coronary artery disease. 5. Recent 2-vessel PTCA stent. 6. Paroxysmal atrial fibrillation, controlled, in sinus rhythm, on sotalol. HISTORY OF PRESENT ILLNESS: Mr. Harley is well known to us with a history of a cardiomyopathy, history of congestive heart failure, chronic systolic dysfunction, history of coronary artery disease, recently underwent 2-vessel PTCA stent on Wednesday and Wednesday. He held his Lasix on Wednesday and Wednesday and of course, got IV fluids after the procedure. He now presents with orthopnea. He has minimal lower extremity edema, quite short of breath, his lungs, however, are relatively clear. He does have a 16-pound weight gain since last Wednesday. PHYSICAL EXAMINATION: GENERAL APPEARANCE: Well-nourished, well-developed, appears stated age. Level of distress, comfortable. PSYCHIATRIC: Mental status, alert, normal affect. Orientation, oriented to time, place and person. EYES: Lids and conjunctiva, noninjected. No discharge, no pallor. ENT: Lips, teeth, gums, normal dentition. Oropharynx, no cyanosis, no pallor. NECK: Carotid arteries, bilateral normal upstroke, no bruits, no thrills. JUGULAR VEINS: No jugular venous pressure or distention. CERVICAL LYMPH NODES: Nontender, nonenlarged. THYROID: Not enlarged. Nontender. No nodules. LUNGS: Respiratory effort, unlabored. CHEST: Normal curvature. No thoracic deformity. No chest wall tenderness. Percussion, resonant. Auscultation, clear. No wheezes, no rales, no rhonchi. CARDIOVASCULAR: Precordial exam, nondisplaced. No heaves or pericardial thrills. Rate and rhythm, regular. Heart sounds, normal S1, normal S2. No S3, no gallop, no rub. Systolic murmur, not heard. Diastolic murmur, not heard. EXTREMITIES: No cyanosis, no edema. Peripheral pulses, full and equal in all extremities, except as noted. No bruits appreciated. ABDOMEN: Soft, nondistended. Normal aorta. No bruit. Nontender. No masses. Liver, nontender, no hepatomegaly. Spleen, nontender, no splenomegaly. MUSCULOSKELETAL: No joint tenderness. No joint swelling. No erythema. NEUROLOGICAL: Normal gait, normal strength, normal tone. SKIN: Warm and dry. OVERALL IMPRESSION: Fluid overload from not taking the Lasix and iatrogenic from the fluid after and during the procedure. We will admit for IV Lasix therapy. Further care depends upon the results of the IV Lasix. TRANSINT:[id number] Voice Confirmation ID: [id number] DOCUMENT ID: [id number] HISTORY AND PHYSICAL [id number] GARRETT HARLEY JEFFREY MD at 1354 CC: [id number] DICTATION DATE: 01/09/17 1145 HEAT SEAL OPERATOR: 01/09/17 1207 DIS IN 01/11/17 [address] [place] [address]
== END 2017-01-11 16:05 | disposition home or self-care (01) | DRG 291 ==
LOC: D.ER 10:46 → D.M2 11:45 → OBSVTIME 11:45 → D.M2 13:13
PROVIDERS: Emergency Medicine; Family Medicine; ADMIT Internal Medicine Interventional Cardiology
DX: I13.0 Hypertensive heart and chronic kidney disease with heart failure and stage 1 through stage 4 chronic kidney disease, or unspecified chronic kidney disease (principal); I50.23 Acute on chronic systolic (congestive) heart failure; N17.9 Acute kidney failure, unspecified; N18.9 Chronic kidney disease, unspecified; E11.22 Type 2 diabetes mellitus with diabetic chronic kidney disease; E11.65 Type 2 diabetes mellitus with hyperglycemia; I42.9 Cardiomyopathy, unspecified; I48.0 Paroxysmal atrial fibrillation; I25.10 Atherosclerotic heart disease of native coronary artery without angina pectoris; Z95.5 Presence of coronary angioplasty implant and graft

== ENCOUNTER 2017-06-16 06:26 | Inpatient (IN) | payer MEDICARE, BC ==
[~2017-06-16] VITALS: Ht 172.7 cm; Wt 84.5 kg
--- NOTE | ~2017-06-16 | EC ---
PATIENT:DESIREE HARLEY DATE OF SERVICE: 06/16/17 SEX: M MEDICAL RECORD: [id number] DATE OF : 39 LOCATION:D.M2 D.210 AGE OF PATIENT: 81 ADMISSION DATE: 06/16/17 REFERRING PHYSICIAN: INTERPRETING PHYSICIAN: NEYMAR TORRES MD ECHOCARDIOGRAM REPORT ECHO CHARGES 4 ECHO COMPLETE CLINICAL DIAGNOSIS: NON Q WA/ CHF HX CAD/CABG/STENTS ECHOCARDIOGRAPHIC MEASUREMENTS (adult normal given) AC root (d.<3.7cm) 3.9 cm LV Septum d (<1.2 cm> 1.4 cm Valve Excursion 1.8 cm LV Septum (systole) 1.6 cm Left Atria (s.<4.0cm> 6.8 cm LVPW d(<1.2cm) 1.5 cm RV (d.<2.3cm) 5.1 cm LVPW (sytole) 2.0 cm LV diastole(<5.6CM) 5.3 cm MV E-F(>70mm/sec) cm LV systole 3.7 cm LVOT Diameter 1.4 cm MV exc.(>10mm) 2.1 cm Est.ejection fraction (50-75%) % Pericardial Effusion N DOPPLER: LVIT cm/sec A 41.0 cm/sec E 135 cm/sec LA cm/sec RVSP 66 mmHg LVOT 101 cm/sec AOP1/2T m/s Asc. Ao 176 cm/sec RVOT 64 cm/sec RA cm/sec PA 142 cm/sec AV Gradient Peak 12.44mmHg AV Mean 6.67 mmHg AV Area 1.0 cm MV Gradient Peak 11.17mmHg MV Mean 4.48 mmHg MV Area cm COMMENTS: Farm Consultant: Dion ROWAN Transition Rn: Johanna Torres TAPE# PACS DATE OF SERVICE: 06/17/2017 PROCEDURE: Transthoracic echocardiogram. FINDINGS: 1. The left ventricle shows moderate concentric left ventricular hypertrophy with mild global hypokinesis. Inflow characteristics were not helpful because the patient is in atrial fibrillation. 2. The left atrium is severely dilated. 3. The aortic valve is thickened and sclerotic without any evidence of ECHOCARDIOGRAM REPORT [id number] DESIREE HARLEY significant stenosis. There is mild aortic regurgitation. 4. The mitral valve is shown to have moderate to moderately severe mitral regurgitation. 5. The tricuspid valve is shown to have severe tricuspid regurgitation with an RVSP of 60 mmHg. 6. The right atrium is dilated. 7. The right ventricle was severely dilated. 8. The pulmonic valve is not well visualized. 9. There is no pericardial effusion. There is no obvious thrombus or vegetation. TRANSINT:[id number] Voice Confirmation ID: [id number] DOCUMENT ID: [id number] 06/24/2017 Edited to correct the date of service, dm. NEYMAR TORRES MD at 1000 CC: [id number] DICTATION DATE: 06/19/17 1036 GENETICIST: 06/19/17 1102 DIS IN 06/24/17 [facility] [address] [place] [address]
--- NOTE | ~2017-06-16 | CN ---
PATIENT NAME:DESIREE GROSSMAN MEDICAL RECORD: [id number] : 39 LOCATION:D.Afia D.2102 ADMIT DATE: 06/16/17 ACCOUNT: [id number] CONSULTING PHYSICIAN: ANNELISE ARAUJO MD REFERRING PHYSICIAN: ANGUS FLORES MD DATE OF CONSULTATION: 06/17/2017 CONSULT REQUESTING PHYSICIAN: Angus Flores MD REASON FOR CONSULTATION: Fdeox-jn-zyyrvoq hypoxic respiratory failure. HISTORY OF PRESENT ILLNESS: Mr. Grossman is a 81-year-old gentleman who has history of COPD and CHF. For the last couple of days, the patient has worsening shortness of breath. He has orthopnea. He has PND. Also, probably he has low-grade fever. The patient was brought into the ER with severe shortness of breath. Workup showed he has pulmonary edema, pneumonia, and leukocytosis. He has also opkjf-nd-rjluisk renal failure. His creatinine jumped from 1.5 to about 2. REVIEW OF THE SYSTEMS: As in history of present illness. PAST MEDICAL HISTORY: 1. COPD. 2. Hypertension. 3. CHF. 4. History of coronary artery disease and [place]. 5. History of pneumonia in the past. 6. Chronic hypoxic respiratory failure. PAST SURGICAL HISTORY: 1. Status post CABG. 2. Status post pacemaker placement. 3. Cardiac catheterization with stent placement in the past. 4. Abdominal aortic aneurysm repair in April 2016. 5. Cataract surgery. ALLERGIES: ALLERGIC TO CARDURA, LEVAQUIN, DYAZIDE, PNEUMOCOCCAL VACCINE. MEDICATIONS: Imagiin.tech was reviewed. PERSONAL AND SOCIAL HISTORY: The patient is an ex-smoker. He is nondrinker. FAMILY HISTORY: Significant for cardiovascular disease. PHYSICAL EXAMINATION: GENERAL: The patient is pleasant. He is in mild respiratory distress. VITAL SIGNS: Blood pressure 112/47, pulse is 74, respirations 20, temperature 98.6, and SpO2 is 94% on 5 liters nasal cannula. HEENT: Conjunctivae are pink. Sclerae are nonicteric. NECK: Neck is supple. There is elevated JVD. CHEST: There is prolonged expiration with wheezing. There are bilateral crackles. HEART: Rate and rhythm irregular. Grade II/ systolic murmur. ABDOMEN: Abdomen is soft. Bowel sounds present. No hepatosplenomegaly. RECTAL: Deferred. CONSULT REPORT [id number] DESIREE GROSSMAN EXTREMITIES: No cyanosis, no clubbing, no pedal edema. SKIN: The skin is warm. Normal turgor. CENTRAL NERVOUS SYSTEM: The patient is awake and alert. There is no obvious cranial nerve abnormality. The gait was not tested. IMPRESSION: 1. Nxycs-my-kocnygw hypoxic respiratory failure. 2. Acute exacerbation of COPD. 3. Pneumonia, most likely community-acquired pneumonia. 4. Edaco-vh-uwpjsvq renal failure. 5. Pulmonary edema. 6. Congestive heart failure, most likely chronic systolic dysfunction with coronary artery disease. 7. Leukocytosis secondary to pneumonia. RECOMMENDATIONS: 1. Continue Rocephin and Zithromax. 2. Start methylprednisolone IV, albuterol/ipratropium nebulizer, Brovana and budesonide nebulizer. 3. Supplemental oxygen. 4. Bumex 1 mg q. 12 hourly. 5. Followup labs and chest radiograph. Dr. Flores, thank you for involving me in the care of Mr. Grossman. TRANSINT:[id number] Voice Confirmation ID: [id number] DOCUMENT ID: [id number] ANNELISE ARAUJO MD CC: ANGUS FLORES MD [id number] DICTATION DATE: 06/17/17 1544 CARE ASST: 06/17/17 1643 ADM IN [facility] [address] [place] [address]
[2017-06-16 07:18] LABS: BASOPHILS 0.2 % (0-2); EOSINOPHILS 0.2 % (0-7); HEMATOCRIT 28.7 % (42.0-54.0); HEMOGLOBIN 8.6 g/dL (13.5-17.5); IMMATURE GRANULOCYTES 0.2 % (0-5); LYMPHOCYTES 7.8 % (15-50); MCH 24.9 pg (26.0-34.0); MCV 82.9 fL (80.0-100.0); MEAN PLATELET VOLUME 10.1 fL (7.4-10.4); MONOCYTES 8.1 % (2-11); NEUTROPHILS 83.5 % (40-80); PLATELET COUNT 177 10x3/uL (130-400); RBC 3.46 10x6/uL (4.20-6.10); RDW 17.5 % (11.5-14.5); WBC 9.7 10x3/uL (4.8-10.8)
[2017-06-16 07:29] LABS: INR 2.57 (0.85-1.17); PROTIME 26.9 SECONDS (11.6-15.0)
[2017-06-16 07:31] LABS: D-DIMER-QUANTITATIVE 1.64 ug/mLFEU (0.20-0.54)
[2017-06-16 07:36] LABS: ALBUMIN 2.9 g/dL (3.4-5.0); ANION GAP 12.4 mmol/L (8-16); BILIRUBIN - TOTAL 0.8 mg/dL (0.2-1.3); CALCIUM 8.3 mg/dL (8.5-10.1); CREATININE - SERUM 2.3 mg/dL (0.6-1.3); POTASSIUM - SERUM 4.4 mmol/L (3.5-5.1); PROTEIN - SERUM 7.5 g/dL (6.4-8.2)
[2017-06-16 07:52] LABS: MAGNESIUM - SERUM 1.9 mg/dL (1.8-2.4)
[2017-06-16 07:55] LABS: TROPONIN-I 0.361 ng/mL (0.000-0.060)
[2017-06-16 18:24] VITALS: BP 131/62; BMI 26.6
[2017-06-17 03:54] VITALS: BP 109/52
[2017-06-17 06:11] LABS: BASOPHILS 0.2 % (0-2); EOSINOPHILS 0.2 % (0-7); HEMATOCRIT 28.7 % (42.0-54.0); HEMOGLOBIN 8.6 g/dL (13.5-17.5); IMMATURE GRANULOCYTES 0.3 % (0-5); LYMPHOCYTES 7.9 % (15-50); MCH 25.1 pg (26.0-34.0); MCV 83.7 fL (80.0-100.0); MONOCYTES 8.2 % (2-11); NEUTROPHILS 83.2 % (40-80); PLATELET COUNT 174 10x3/uL (130-400); RBC 3.43 10x6/uL (4.20-6.10); RDW 17.7 % (11.5-14.5); WBC 12.1 10x3/uL (4.8-10.8)
[2017-06-17 06:28] LABS: ANION GAP 13.8 mmol/L (8-16); CALCIUM 8.2 mg/dL (8.5-10.1); CARBON DIOXIDE 24.8 mmol/L (21.0-32.0); CREATININE - SERUM 2.7 mg/dL (0.6-1.3); POTASSIUM - SERUM 4.6 mmol/L (3.5-5.1)
[2017-06-17] MEDS ORDERED: COUMADIN7.5 MG PO (08:29)
[2017-06-17 08:30] VITALS: BP 112/47
[2017-06-17 09:35] LABS: INR 2.74 (0.85-1.17); PROTIME 28.3 SECONDS (11.6-15.0)
[2017-06-17 11:51] LABS: % SATURATION 8 % (15-55); IRON 31 ug/dl (35-150); TOTAL IRON BIND CAPACITY 387 ug/dl (260-445); UNSAT IRON BIND CAPACITY 356 ug/dl (150-375)
[2017-06-17 12:06] VITALS: BP 118/53
[2017-06-17 12:14] VITALS: Ht 172.7 cm; Wt 84.5 kg
[2017-06-17 16:06] VITALS: BP 97/49
[2017-06-17 21:25] VITALS: BP 133/55
[2017-06-18 00:36] VITALS: BP 134/57
[2017-06-18 04:45] VITALS: BP 113/50
[2017-06-18 04:47] LABS: BASOPHILS 0 % (0-2); EOSINOPHILS 0 % (0-7); HEMATOCRIT 26.5 % (42.0-54.0); IMMATURE GRANULOCYTES 0.3 % (0-5); LYMPHOCYTES 3.4 % (15-50); MCH 24.9 pg (26.0-34.0); MCHC 30.2 g/dL (31.0-37.0); MCV 82.6 fL (80.0-100.0); MEAN PLATELET VOLUME 10.8 fL (7.4-10.4); MONOCYTES 1.3 % (2-11); PLATELET COUNT 185 10x3/uL (130-400); RBC 3.21 10x6/uL (4.20-6.10); RDW 17.6 % (11.5-14.5)
[2017-06-18 04:57] LABS: WBC 7.9 10x3/uL (4.8-10.8)
[2017-06-18 05:06] LABS: % SATURATION 7 % (15-55); ALBUMIN 2.5 g/dL (3.4-5.0); CALCIUM 7.7 mg/dL (8.5-10.1); CARBON DIOXIDE 22.3 mmol/L (21.0-32.0); CREATININE - SERUM 2.6 mg/dL (0.6-1.3); IRON 29 ug/dl (35-150); PHOSPHOROUS 4.2 mg/dL (2.5-4.9); TOTAL IRON BIND CAPACITY 388 ug/dl (260-445); UNSAT IRON BIND CAPACITY 359 ug/dl (150-375)
[2017-06-18 05:09] LABS: INR 2.96 (0.85-1.17); PROTIME 30.1 SECONDS (11.6-15.0)
[2017-06-18 05:10] LABS: ALBUMIN 2.2 g/dL (3.4-5.0); ANION GAP 13.9 mmol/L (8-16); ANION GAP 14.9 mmol/L (8-16); BILIRUBIN - TOTAL 0.56 mg/dL (0.2-1.3); CALCIUM 7.3 mg/dL (8.5-10.1); CARBON DIOXIDE 21.3 mmol/L (21.0-32.0); CREATININE - SERUM 2.5 mg/dL (0.6-1.3); POTASSIUM - SERUM 4.2 mmol/L (3.5-5.1); PROTEIN - SERUM 6.5 g/dL (6.4-8.2)
[2017-06-18 05:42] LABS: ERYTHROCYTE SEDIMENTATION RATE 42 mm/hr (0-20)
[2017-06-18 07:21] LABS: FOLATE (FOLIC ACID) - SERUM 10.2 ng/mL (>3.0)
[2017-06-18 08:05] VITALS: BP 124/55
[2017-06-18 12:10] VITALS: BP 128/56
[2017-06-18 15:01] VITALS: BP 134/52
[2017-06-18 21:11] VITALS: BP 124/60
[2017-06-19 01:27] VITALS: BP 134/44
[2017-06-19 05:08] VITALS: BP 127/61
[2017-06-19 06:43] LABS: BASOPHILS 0 % (0-2); EOSINOPHILS 0 % (0-7); HEMATOCRIT 28.8 % (42.0-54.0); IMMATURE GRANULOCYTES 0.3 % (0-5); LYMPHOCYTES 2.2 % (15-50); MCH 25.6 pg (26.0-34.0); MCHC 31.3 g/dL (31.0-37.0); MCV 81.8 fL (80.0-100.0); MEAN PLATELET VOLUME 10.1 fL (7.4-10.4); MONOCYTES 2.8 % (2-11); NEUTROPHILS 94.7 % (40-80); PLATELET COUNT 150 10x3/uL (130-400); RBC 3.52 10x6/uL (4.20-6.10); RDW 17.7 % (11.5-14.5)
[2017-06-19 06:50] LABS: WBC 13.5 10x3/uL (4.8-10.8)
[2017-06-19 06:54] LABS: INR 3.77 (0.85-1.17); PROTIME 36.4 SECONDS (11.6-15.0)
[2017-06-19 07:27] LABS: ALBUMIN 2.9 g/dL (3.4-5.0); ANION GAP 19.1 mmol/L (8-16); BILIRUBIN - TOTAL 0.53 mg/dL (0.2-1.3); CALCIUM 8.8 mg/dL (8.5-10.1); CARBON DIOXIDE 21.4 mmol/L (21.0-32.0); CREATININE - SERUM 2.8 mg/dL (0.6-1.3); POTASSIUM - SERUM 4.5 mmol/L (3.5-5.1); PROTEIN - SERUM 7.5 g/dL (6.4-8.2)
[2017-06-19 07:54] VITALS: BP 110/44
[2017-06-19 12:33] VITALS: BP 113/58
[2017-06-19 16:10] VITALS: BP 107/50
[2017-06-19 20:58] VITALS: BP 113/59
[2017-06-20 05:19] VITALS: BP 108/56
[2017-06-20 07:19] LABS: BASOPHILS 0 % (0-2); EOSINOPHILS 0 % (0-7); HEMATOCRIT 30.3 % (42.0-54.0); HEMOGLOBIN 9.4 g/dL (13.5-17.5); IMMATURE GRANULOCYTES 0.3 % (0-5); LYMPHOCYTES 2.5 % (15-50); MCH 25.4 pg (26.0-34.0); MCV 81.9 fL (80.0-100.0); MEAN PLATELET VOLUME 10.2 fL (7.4-10.4); MONOCYTES 2.5 % (2-11); NEUTROPHILS 94.7 % (40-80); PLATELET COUNT 161 10x3/uL (130-400); RDW 17.8 % (11.5-14.5)
[2017-06-20 07:25] LABS: INR 4.97 (0.85-1.17)
[2017-06-20 07:26] LABS: PROTIME 45.2 SECONDS (11.6-15.0)
[2017-06-20 07:32] LABS: ALBUMIN 2.9 g/dL (3.4-5.0); ANION GAP 16.8 mmol/L (8-16); BILIRUBIN - TOTAL 0.49 mg/dL (0.2-1.3); CALCIUM 8.6 mg/dL (8.5-10.1); CARBON DIOXIDE 23.9 mmol/L (21.0-32.0); POTASSIUM - SERUM 4.7 mmol/L (3.5-5.1); PROTEIN - SERUM 7.3 g/dL (6.4-8.2)
[2017-06-20 12:25] VITALS: BP 123/56
[2017-06-20 16:18] VITALS: BP 116/51
[2017-06-20 20:50] VITALS: BP 113/34
[2017-06-21 01:45] VITALS: BP 107/53
[2017-06-21 06:24] LABS: BASOPHILS 0.1 % (0-2); EOSINOPHILS 0 % (0-7); HEMOGLOBIN 9.2 g/dL (13.5-17.5); IMMATURE GRANULOCYTES 0.4 % (0-5); LYMPHOCYTES 3.9 % (15-50); MCH 25.2 pg (26.0-34.0); MCHC 30.7 g/dL (31.0-37.0); MCV 82.2 fL (80.0-100.0); MEAN PLATELET VOLUME 9.6 fL (7.4-10.4); MONOCYTES 6.7 % (2-11); NEUTROPHILS 88.9 % (40-80); PLATELET COUNT 163 10x3/uL (130-400); RBC 3.65 10x6/uL (4.20-6.10); RDW 17.9 % (11.5-14.5); WBC 8.9 10x3/uL (4.8-10.8)
[2017-06-21 06:26] LABS: INR 4.35 (0.85-1.17); PROTIME 40.8 SECONDS (11.6-15.0)
[2017-06-21 06:33] LABS: ALBUMIN 2.8 g/dL (3.4-5.0); ANION GAP 14.3 mmol/L (8-16); BILIRUBIN - TOTAL 0.5 mg/dL (0.2-1.3); CALCIUM 8.6 mg/dL (8.5-10.1); CARBON DIOXIDE 23.5 mmol/L (21.0-32.0); CREATININE - SERUM 2.7 mg/dL (0.6-1.3); PHOSPHOROUS 5.8 mg/dL (2.5-4.9); POTASSIUM - SERUM 4.8 mmol/L (3.5-5.1); PROTEIN - SERUM 7.1 g/dL (6.4-8.2)
[2017-06-21 07:01] VITALS: BP 130/62
[2017-06-21 09:25] VITALS: BP 101/50
[2017-06-21 12:43] VITALS: BP 113/52
[2017-06-21 17:32] VITALS: BP 131/64
[2017-06-21 20:00] VITALS: BP 117/57
[2017-06-22] VITALS: BP 99/57
[2017-06-22 04:00] VITALS: BP 134/65
[2017-06-22 05:30] LABS: BASOPHILS 0 % (0-2); EOSINOPHILS 0 % (0-7); HEMATOCRIT 29.8 % (42.0-54.0); HEMOGLOBIN 9.2 g/dL (13.5-17.5); IMMATURE GRANULOCYTES 0.5 % (0-5); MCH 25.2 pg (26.0-34.0); MCHC 30.9 g/dL (31.0-37.0); MCV 81.6 fL (80.0-100.0); MEAN PLATELET VOLUME 9.8 fL (7.4-10.4); MONOCYTES 2.3 % (2-11); NEUTROPHILS 89.2 % (40-80); PLATELET COUNT 163 10x3/uL (130-400); RBC 3.65 10x6/uL (4.20-6.10); RDW 17.8 % (11.5-14.5); WBC 7.4 10x3/uL (4.8-10.8)
[2017-06-22 05:43] LABS: INR 3.07 (0.85-1.17)
[2017-06-22 05:50] LABS: ALBUMIN 2.9 g/dL (3.4-5.0); ANION GAP 14.1 mmol/L (8-16); BILIRUBIN - TOTAL 0.54 mg/dL (0.2-1.3); CALCIUM 8.7 mg/dL (8.5-10.1); CARBON DIOXIDE 26.9 mmol/L (21.0-32.0); CREATININE - SERUM 2.6 mg/dL (0.6-1.3); PHOSPHOROUS 5.5 mg/dL (2.5-4.9)
[2017-06-22 10:18] VITALS: BP 123/55
[2017-06-22 17:37] VITALS: BP 126/57
[2017-06-22 17:51] VITALS: BP 136/68
[2017-06-22 22:33] VITALS: BP 147/65
[2017-06-23 04:40] VITALS: BP 137/53
[2017-06-23 05:38] LABS: BASOPHILS 0 % (0-2); EOSINOPHILS 0 % (0-7); HEMATOCRIT 30.2 % (42.0-54.0); HEMOGLOBIN 9.5 g/dL (13.5-17.5); IMMATURE GRANULOCYTES 0.6 % (0-5); MCH 25.4 pg (26.0-34.0); MCHC 31.5 g/dL (31.0-37.0); MCV 80.7 fL (80.0-100.0); MEAN PLATELET VOLUME 9.2 fL (7.4-10.4); MONOCYTES 4.6 % (2-11); NEUTROPHILS 86.8 % (40-80); PLATELET COUNT 153 10x3/uL (130-400); RBC 3.74 10x6/uL (4.20-6.10); RDW 17.9 % (11.5-14.5)
[2017-06-23 05:55] LABS: ANION GAP 12.4 mmol/L (8-16); CALCIUM 8.8 mg/dL (8.5-10.1); CARBON DIOXIDE 26.3 mmol/L (21.0-32.0); CREATININE - SERUM 2.2 mg/dL (0.6-1.3); POTASSIUM - SERUM 4.7 mmol/L (3.5-5.1)
[2017-06-23 07:57] VITALS: BP 118/66
[2017-06-23 11:19] VITALS: BP 133/60
[2017-06-23 15:54] VITALS: BP 140/064
[2017-06-23 21:44] VITALS: BP 156/61
[2017-06-24 04:47] VITALS: BP 133/67
[2017-06-24 06:28] LABS: BASOPHILS 0.1 % (0-2); EOSINOPHILS 0 % (0-7); HEMATOCRIT 30.6 % (42.0-54.0); HEMOGLOBIN 9.5 g/dL (13.5-17.5); IMMATURE GRANULOCYTES 1.1 % (0-5); LYMPHOCYTES 6.2 % (15-50); MCH 25.2 pg (26.0-34.0); MCV 81.2 fL (80.0-100.0); MEAN PLATELET VOLUME 9.7 fL (7.4-10.4); MONOCYTES 6.6 % (2-11); PLATELET COUNT 166 10x3/uL (130-400); RBC 3.77 10x6/uL (4.20-6.10); RDW 18.1 % (11.5-14.5); WBC 7.3 10x3/uL (4.8-10.8)
[2017-06-24 06:48] LABS: ANION GAP 12.6 mmol/L (8-16); CALCIUM 8.6 mg/dL (8.5-10.1); CARBON DIOXIDE 27.3 mmol/L (21.0-32.0); CREATININE - SERUM 1.9 mg/dL (0.6-1.3); POTASSIUM - SERUM 4.9 mmol/L (3.5-5.1)
[2017-06-24 07:49] VITALS: BP 136/60
[2017-06-24 11:48] VITALS: BP 126/53
[2017-06-24 16:18] VITALS: BP 142/64
[2017-06-24] MEDS ORDERED: NYSTATIN ORAL SU5 ML PO (16:46)
[2017-06-24] MEDS ORDERED: BROVANA15 MCG/2 M INH (16:48)
[2017-06-24] MEDS ORDERED: ATROVENT 0.02%2.5 ML UPD (16:49)
[2017-06-24] MEDS ORDERED: XOPENEX 0.0.63 MG/3 UPD (16:50)
[2017-06-24] MEDS ORDERED: FLOMAX0.4 MG PO (16:51)
[2017-06-24] MEDS ORDERED: STERAPRED DS 1210 MG PO (16:53)
== END 2017-06-24 19:28 | disposition home health service (06) | DRG 280 ==
LOC: D.ER 06:26 → D.M2 21:19
PROVIDERS: Emergency Medicine; Family Medicine; Internal Medicine; Internal Medicine Cardiovascular Disease; Internal Medicine Nephrology
DX: I50.23 Acute on chronic systolic (congestive) heart failure (principal); J18.9 Pneumonia, unspecified organism; I21.A1 Myocardial infarction type 2; J96.00 Acute respiratory failure, unspecified whether with hypoxia or hypercapnia; I13.0 Hypertensive heart and chronic kidney disease with heart failure and stage 1 through stage 4 chronic kidney disease, or unspecified chronic kidney disease; N18.4 Chronic kidney disease, stage 4 (severe); N17.9 Acute kidney failure, unspecified; J44.1 Chronic obstructive pulmonary disease with (acute) exacerbation

== ENCOUNTER → 2017-07-14 09:18 | Outpatient (CLI) | payer MEDICARE, BC ==
[2017-06-17 12:14] VITALS: BMI 28.1
[~2017-07-14 09:18] MED LIST changes: +ATROVENT 0.02%2.5 ML UPD; +BROVANA15 MCG/2 M INH; +COUMADIN7.5 MG PO; +FLOMAX0.4 MG PO; +NYSTATIN ORAL SU5 ML PO; +STERAPRED DS 1210 MG PO; +XOPENEX 0.0.63 MG/3 UPD
== END | disposition home or self-care (01) ==
LOC: D.US 09:18
DX: I12.9 Hypertensive chronic kidney disease with stage 1 through stage 4 chronic kidney disease, or unspecified chronic kidney disease (principal); N18.3 Chronic kidney disease, stage 3 (moderate)

== ENCOUNTER → 2017-08-27 12:27 | Outpatient (CLI) | payer MEDICARE, BC ==
[2017-06-17 12:14] VITALS: BMI 28.1
== END | disposition home or self-care (01) ==
LOC: D.RT 12:27
DX: J44.9 Chronic obstructive pulmonary disease, unspecified (principal); I50.9 Heart failure, unspecified

== ENCOUNTER 2017-09-28 16:04 | Inpatient (IN) | payer MEDICARE, BC ==
[~2017-09-28] VITALS: Ht 172.7 cm; Wt 78.5 kg
--- NOTE | ~2017-09-28 | EC ---
PATIENT:DESIREE HARLEY DATE OF SERVICE: 09/28/17 SEX: M MEDICAL RECORD: [id number] DATE OF : 39 LOCATION:D.MS [place] AGE OF PATIENT: 81 ADMISSION DATE: 09/28/17 REFERRING PHYSICIAN: INTERPRETING PHYSICIAN: JETT MEJIA MD ECHOCARDIOGRAM REPORT ECHO CHARGES 4 ECHO COMPLETE Date: 10/01 CLINICAL DIAGNOSIS: CHF HX PACER,CAD/CABG ECHOCARDIOGRAPHIC MEASUREMENTS (adult normal given) AC root (d.<3.7cm) 4.0 cm LV Septum d (<1.2 cm> 1.2 cm Valve Excursion 1.6 cm LV Septum (systole) 1.7 cm Left Atria (s.<4.0cm> 5.8 cm LVPW d(<1.2cm) 1.7 cm RV (d.<2.3cm) 5.7 cm LVPW (sytole) 1.9 cm LV diastole(<5.6CM) 5.4 cm MV E-F(>70mm/sec) cm LV systole 3.4 cm LVOT Diameter 1.3 cm MV exc.(>10mm) 2.2 cm Est.ejection fraction (50-75%) % DOPPLER: LVIT cm/sec A 47.0 cm/sec E 178 cm/sec LA cm/sec RVSP 79 mmHg LVOT 120 cm/sec AOP1/2T m/s Asc. Ao 170 cm/sec RVOT 80 cm/sec RA cm/sec PA 159 cm/sec AV Gradient Peak 11.60mmHg AV Mean 4.90 mmHg AV Area 2.3 cm MV Gradient Peak 14.28mmHg MV Mean 4.08 mmHg MV Area cm COMMENTS: Summer Counselor: Dion ROWAN Enlisted Aircrew/Aerial Observer/Gunner: 1 Dr. Mejia TAPE# PACS Pericardial Effusion N DATE OF SERVICE: PROCEDURE: Echocardiogram. FINDINGS: 1. Left ventricular chamber size is within normal limits. Left ventricular systolic function is normal. Overall ejection fraction estimated at 55%. 2. Left atrium, right atrium, and right ventricular chamber sizes are moderately to severely dilated. Left atrium measures 5.8 cm. 3. Valvular structures have normal structure and motion. ECHOCARDIOGRAM REPORT [id number] DESIREE HARLEY 4. Doppler interrogation reveals mild aortic insufficiency, severe mitral regurgitation, severe tricuspid regurgitation, no other valvular insufficiency or stenosis. Pulmonary systolic pressure; however, is markedly elevated estimated 79 mmHg. 5. No evidence of pericardial effusion or left ventricular thrombus. TRANSINT:[id number] Voice Confirmation ID: [id number] DOCUMENT ID: [id number] JETT MEJIA MD at 0956 CC: [id number] DICTATION DATE: 10/01/17 1315 MANAGER PACKAGING: 10/01/17 1337 ADM IN [facility] [address] [id number]
--- NOTE | ~2017-09-28 | HP ---
PATIENT: DESIREE GROSSMAN MEDICAL RECORD: [id number] ACCOUNT: [id number] LOCATION:D.MS [id number] : 37 ADMISSION DATE: 09/28/17 HISTORY AND PHYSICAL EXAMINATION HISTORY: Mr. Grossman is a very nice 81-year-old white male that actually presented to the office yesterday complaining of upper abdominal pain and bloating, sharp in nature; and some left-sided chest pain. The pain is worse when he takes a deep breath. It does not really feel like anything he has had ever associated with any type of cardiac stuff. It can be heavy and sharp at the same time, usually lasts less than 5 seconds. He has been more fatigued with symptoms. His states that he pretty much is wanting to sleep for the last 3-4 days. He may have had little low-grade fever. Chest x-ray in the office reveals no actual infiltrates. He does have a history of an abdominal aortic aneurysm, which measured 3.[address] in July. Labs were drawn and we got his results back today, which revealed elevated pancreatic enzymes, compatible with acute pancreatitis. His lipase is 2576 and amylase is 830. Lipids; his triglycerides are 136 and total cholesterol is 189. He is admitted at this time for evaluation and treatment. PAST MEDICAL HISTORY: His current medical problems include prediabetes, COPD, abdominal aortic aneurysm, chronic renal failure, sick sinus syndrome, chronic hypoxia, osteoarthritis, peripheral vascular disease, congestive heart failure, osteoarthritis, atrial fibrillation, coronary artery disease, hypertension. He was recently hospitalized. PREVIOUS SURGERIES: Include left hip joint replacement, coronary stents in 2016 times 2, fem-pop bypass in 2011, coronary artery bypass in 1998, endovascular stent of the infrarenal AAA in April of 2015. He also had pacemaker in 2008. ALLERGIES OR INTOLERANCES: INCLUDE ACETAMINOPHEN; CARDURA, WHICH RESULTED IN A RASH; DYAZIDE, WHICH CAUSED MUSCLE PAIN; IODINE, WHICH RESULTED IN HIVES; LEVAQUIN; METRONIDAZOLE; AND PREVNAR, WHICH RESULTED IN A RASH. CURRENT MEDICATIONS: Include Coumadin which he was on 7.5 mg on Wednesday, Wednesday, and Wednesday; and 5 mg on all other days. His INR yesterday was elevated and he was to be holding and dropping to 5, but we have just left him on hold now. Also, tamsulosin 0.4 daily, potassium 10 mEq two daily, omeprazole 20 mg a day, ipratropium, furosemide 20 mg a day, clopidogrel 75 mg a day, benazepril 40 mg a day. FAMILY HISTORY: Significant for heart disease. SOCIAL HISTORY: The patient is . He has been a smoker. He does not drink. REVIEW OF SYSTEMS: He had some low-grade fever; left-sided chest pain, which is worse with inspiration; shortness of breath at his baseline. He has had upper abdominal pain and bloating. No real change in bowels. No change in urinating. PHYSICAL EXAMINATION: GENERAL: He is in no distress, but does appear chronically ill. HEART: Regular at this time. LUNGS: Actually pretty clear for him. ABDOMEN: Soft with some diffuse upper quadrant tenderness. HISTORY AND PHYSICAL [id number] DESIREE GROSSMAN NEUROLOGIC: Without any gross deficits. IMPRESSION: 1. Acute pancreatitis with normal triglycerides. 2. COPD. 3. CAD. 4. AAA with stent. 5. Peripheral vascular disease. 6. Prediabetes. 7. Status post pacemaker. 8. Chronic renal insufficiency. 9. Hypoxia. 10. Arthritis. 11. CHF. 12. Atrial fib. 13. Hypercoagulable. PLAN: IV fluids for now, n.p.o. Follow labs. Check CT of abdomen and pelvis without contrast. Get a gallbladder ultrasound. Lipids were again okay. Pain medicines, pulmonary updraft. Coumadin is on hold right now. We will see what his INR is upon admission. TRANSINT:[id number] Voice Confirmation ID: [id number] DOCUMENT ID: [id number] MELISSA VALENZUELA DO at 1228 CC: [id number] DICTATION DATE: 09/28/171747 QUALITY ASSURANCE COACH: 09/28/171917 ADM IN [facility] [address] [place] [address]
[2017-09-28 17:24] VITALS: BP 117/62
[2017-09-28 18:01] LABS: BASOPHILS 0.4 % (0-2); EOSINOPHILS 1.7 % (0-7); HEMATOCRIT 31.3 % (42.0-54.0); IMMATURE GRANULOCYTES 1.1 % (0-5); LYMPHOCYTES 10.9 % (15-50); MCH 28.6 pg (26.0-34.0); MCHC 31.9 g/dL (31.0-37.0); MCV 89.4 fL (80.0-100.0); MEAN PLATELET VOLUME 9.8 fL (7.4-10.4); MONOCYTES 8.7 % (2-11); NEUTROPHILS 77.2 % (40-80); RDW 15.2 % (11.5-14.5); WBC 7.2 10x3/uL (4.8-10.8)
[2017-09-28 18:19] LABS: INR 4.81 (0.85-1.17); PROTIME 44.1 SECONDS (11.6-15.0)
[2017-09-28 18:51] LABS: ALBUMIN 2.2 g/dL (3.4-5.0); ANION GAP 16.6 mmol/L (8-16); BILIRUBIN - TOTAL 0.9 mg/dL (0.2-1.3); CARBON DIOXIDE 19.1 mmol/L (21.0-32.0); CREATININE - SERUM 1.5 mg/dL (0.6-1.3); PLATELET COUNT 236 10x3/uL (130-400); POTASSIUM - SERUM 4.7 mmol/L (3.5-5.1); PROTEIN - SERUM 6.9 g/dL (6.4-8.2)
[2017-09-28 20:23] VITALS: BP 105/57
[2017-09-28 23:43] VITALS: BP 175/45
[2017-09-29 04:25] VITALS: BP 109/49
[2017-09-29 05:56] LABS: PROTIME 45.9 SECONDS (11.6-15.0)
[2017-09-29 06:04] LABS: BASOPHILS 0.1 % (0-2); EOSINOPHILS 1.3 % (0-7); HEMATOCRIT 30.8 % (42.0-54.0); HEMOGLOBIN 9.6 g/dL (13.5-17.5); IMMATURE GRANULOCYTES 0.9 % (0-5); LYMPHOCYTES 13.8 % (15-50); MCHC 31.2 g/dL (31.0-37.0); MCV 89.8 fL (80.0-100.0); MEAN PLATELET VOLUME 10.2 fL (7.4-10.4); MONOCYTES 9.9 % (2-11); PLATELET COUNT 246 10x3/uL (130-400); RBC 3.43 10x6/uL (4.20-6.10); RDW 15.1 % (11.5-14.5); WBC 7.1 10x3/uL (4.8-10.8)
[2017-09-29 06:09] LABS: INR 5.06 (0.85-1.17)
[2017-09-29 06:18] LABS: ANION GAP 17.6 mmol/L (8-16); CARBON DIOXIDE 19.1 mmol/L (21.0-32.0); CREATININE - SERUM 1.6 mg/dL (0.6-1.3); POTASSIUM - SERUM 4.7 mmol/L (3.5-5.1); PROTEIN - SERUM 7.2 g/dL (6.4-8.2)
[2017-09-29 07:35] LABS: APPEARANCE HAZY (CLEAR); BILIRUBIN NEGATIVE (NEGATIVE); COLOR DK YELLOW (YELLOW); GLUCOSE NEGATIVE (NEGATIVE); KETONE NEGATIVE (NEGATIVE); NITRITE NEGATIVE (NEGATIVE); PROTEIN NEGATIVE (NEGATIVE); SPECIFIC GRAVITY 1.025 (1.005-1.020)
[2017-09-29 08:39] VITALS: BP 125/60
[2017-09-29 12:45] VITALS: BP 120/56
[2017-09-29 13:22] VITALS: BMI 26.3
[2017-09-29 20:00] VITALS: BP 141/66
[2017-09-29 21:14] VITALS: Ht 172.7 cm; Wt 78.5 kg
[2017-09-30] VITALS: BP 114/77
[2017-09-30 04:00] VITALS: BP 158/87
[2017-09-30 05:35] LABS: BASOPHILS 0.3 % (0-2); EOSINOPHILS 1.6 % (0-7); IMMATURE GRANULOCYTES 1.1 % (0-5); LYMPHOCYTES 9.4 % (15-50); MCH 28.7 pg (26.0-34.0); MCHC 32.3 g/dL (31.0-37.0); MCV 88.8 fL (80.0-100.0); MEAN PLATELET VOLUME 9.4 fL (7.4-10.4); MONOCYTES 8.8 % (2-11); NEUTROPHILS 78.8 % (40-80); PLATELET COUNT 250 10x3/uL (130-400); RBC 3.49 10x6/uL (4.20-6.10); RDW 15.2 % (11.5-14.5); WBC 7.4 10x3/uL (4.8-10.8)
[2017-09-30 06:19] LABS: ALBUMIN 2.1 g/dL (3.4-5.0); ANION GAP 16.7 mmol/L (8-16); BILIRUBIN - TOTAL 1.06 mg/dL (0.2-1.3); CALCIUM 8.3 mg/dL (8.5-10.1); CARBON DIOXIDE 18.9 mmol/L (21.0-32.0); CREATININE - SERUM 1.4 mg/dL (0.6-1.3); MAGNESIUM - SERUM 2.4 mg/dL (1.8-2.4); PHOSPHOROUS 3.5 mg/dL (2.5-4.9); POTASSIUM - SERUM 4.6 mmol/L (3.5-5.1); PROTEIN - SERUM 7.6 g/dL (6.4-8.2)
[2017-09-30 06:23] LABS: INR 3.51 (0.85-1.17); PROTIME 34.4 SECONDS (11.6-15.0)
[2017-09-30 09:11] VITALS: BP 148/70
[2017-09-30 13:21] VITALS: BP 154/71
[2017-09-30 18:38] VITALS: BP 142/60
[2017-09-30 20:00] VITALS: BP 147/65
[2017-10-01] VITALS: BP 177/60
[2017-10-01 04:00] VITALS: BP 158/65
[2017-10-01 05:32] LABS: BASOPHILS 0.2 % (0-2); EOSINOPHILS 0 % (0-7); HEMATOCRIT 31.8 % (42.0-54.0); HEMOGLOBIN 10.1 g/dL (13.5-17.5); IMMATURE GRANULOCYTES 1.4 % (0-5); LYMPHOCYTES 3.9 % (15-50); MCH 28.2 pg (26.0-34.0); MCHC 31.8 g/dL (31.0-37.0); MCV 88.8 fL (80.0-100.0); MEAN PLATELET VOLUME 9.8 fL (7.4-10.4); MONOCYTES 0.3 % (2-11); NEUTROPHILS 94.2 % (40-80); PLATELET COUNT 250 10x3/uL (130-400); RBC 3.58 10x6/uL (4.20-6.10); RDW 14.9 % (11.5-14.5); WBC 6.5 10x3/uL (4.8-10.8)
[2017-10-01 05:56] LABS: ALBUMIN 2.1 g/dL (3.4-5.0); ANION GAP 18.1 mmol/L (8-16); BILIRUBIN - TOTAL 1.06 mg/dL (0.2-1.3); CALCIUM 8.3 mg/dL (8.5-10.1); CREATININE - SERUM 1.4 mg/dL (0.6-1.3); POTASSIUM - SERUM 5.1 mmol/L (3.5-5.1); PROTEIN - SERUM 7.7 g/dL (6.4-8.2)
[2017-10-01 06:02] LABS: INR 1.7 (0.85-1.17); PROTIME 19.5 SECONDS (11.6-15.0)
[2017-10-01 08:19] VITALS: BP 151/71
[2017-10-01 15:54] VITALS: BP 144/63
[2017-10-01 20:00] VITALS: BP 132/84
[2017-10-02 03:55] LABS: BASOPHILS 0.1 % (0-2); EOSINOPHILS 0 % (0-7); HEMATOCRIT 30.5 % (42.0-54.0); HEMOGLOBIN 9.8 g/dL (13.5-17.5); IMMATURE GRANULOCYTES 0.7 % (0-5); LYMPHOCYTES 3.4 % (15-50); MCH 28.2 pg (26.0-34.0); MCHC 32.1 g/dL (31.0-37.0); MCV 87.6 fL (80.0-100.0); MEAN PLATELET VOLUME 9.7 fL (7.4-10.4); MONOCYTES 4.4 % (2-11); NEUTROPHILS 91.4 % (40-80); RBC 3.48 10x6/uL (4.20-6.10); RDW 14.9 % (11.5-14.5)
[2017-10-02 04:00] VITALS: BP 135/66
[2017-10-02 04:05] LABS: INR 1.43 (0.85-1.17)
[2017-10-02 04:06] LABS: PLATELET COUNT 305 10x3/uL (130-400); WBC 15.1 10x3/uL (4.8-10.8)
[2017-10-02 04:13] LABS: ALBUMIN 2.3 g/dL (3.4-5.0); ANION GAP 16.7 mmol/L (8-16); BILIRUBIN - TOTAL 0.83 mg/dL (0.2-1.3); CALCIUM 8.6 mg/dL (8.5-10.1); CARBON DIOXIDE 19.2 mmol/L (21.0-32.0); CREATININE - SERUM 1.5 mg/dL (0.6-1.3); POTASSIUM - SERUM 4.9 mmol/L (3.5-5.1); PROTEIN - SERUM 7.8 g/dL (6.4-8.2)
[2017-10-02 07:44] VITALS: BP 139/63
[2017-10-02 10:13] LABS: ALPHA FETOPROTEIN -(TUMOR MRK) 1.4 ng/mL (0.0-8.3); CA125 423.3 U/mL (Not Estab.)
[2017-10-02 11:34] VITALS: BP 130/62
[2017-10-02 16:20] VITALS: BP 132/64
[2017-10-02 21:53] VITALS: BP 147/60
[2017-10-03 02:51] VITALS: BP 126/42
[2017-10-03 04:59] LABS: BASOPHILS 0.1 % (0-2); EOSINOPHILS 0.2 % (0-7); HEMATOCRIT 29.7 % (42.0-54.0); HEMOGLOBIN 9.6 g/dL (13.5-17.5); IMMATURE GRANULOCYTES 1.2 % (0-5); LYMPHOCYTES 5.1 % (15-50); MCH 28.4 pg (26.0-34.0); MCHC 32.3 g/dL (31.0-37.0); MCV 87.9 fL (80.0-100.0); MEAN PLATELET VOLUME 9.6 fL (7.4-10.4); MONOCYTES 7.4 % (2-11); PLATELET COUNT 258 10x3/uL (130-400); RBC 3.38 10x6/uL (4.20-6.10); RDW 15.1 % (11.5-14.5)
[2017-10-03 05:00] LABS: WBC 11.3 10x3/uL (4.8-10.8)
[2017-10-03 05:24] LABS: ALBUMIN 2.1 g/dL (3.4-5.0); ANION GAP 15.5 mmol/L (8-16); BILIRUBIN - TOTAL 0.99 mg/dL (0.2-1.3); CALCIUM 8.3 mg/dL (8.5-10.1); CARBON DIOXIDE 18.5 mmol/L (21.0-32.0); CREATININE - SERUM 1.6 mg/dL (0.6-1.3); PROTEIN - SERUM 7.2 g/dL (6.4-8.2)
[2017-10-03 05:29] LABS: INR 1.42 (0.85-1.17); PROTIME 16.9 SECONDS (11.6-15.0)
[2017-10-03 12:00] VITALS: BP 131/58
[2017-10-03 15:37] VITALS: BP 148/58
[2017-10-03 21:02] VITALS: BP 118/68
[2017-10-04 01:39] VITALS: BP 113/54
[2017-10-04 05:25] LABS: BASOPHILS 0.1 % (0-2); EOSINOPHILS 0.3 % (0-7); HEMATOCRIT 29.2 % (42.0-54.0); HEMOGLOBIN 9.4 g/dL (13.5-17.5); IMMATURE GRANULOCYTES 1.4 % (0-5); LYMPHOCYTES 5.2 % (15-50); MCH 28.2 pg (26.0-34.0); MCHC 32.2 g/dL (31.0-37.0); MCV 87.7 fL (80.0-100.0); MEAN PLATELET VOLUME 10.2 fL (7.4-10.4); MONOCYTES 10.6 % (2-11); NEUTROPHILS 82.4 % (40-80); PLATELET COUNT 252 10x3/uL (130-400); RBC 3.33 10x6/uL (4.20-6.10); RDW 15.3 % (11.5-14.5); WBC 10.2 10x3/uL (4.8-10.8)
[2017-10-04 05:41] LABS: ALBUMIN 2.1 g/dL (3.4-5.0); ANION GAP 16.7 mmol/L (8-16); BILIRUBIN - TOTAL 1.59 mg/dL (0.2-1.3); CALCIUM 8.4 mg/dL (8.5-10.1); CARBON DIOXIDE 17.3 mmol/L (21.0-32.0); CREATININE - SERUM 1.7 mg/dL (0.6-1.3); PROTEIN - SERUM 7.1 g/dL (6.4-8.2)
[2017-10-04 06:33] VITALS: BP 123/72
[2017-10-04 09:07] VITALS: BP 114/50
[2017-10-04 16:05] VITALS: BP 128/51
[2017-10-04 20:00] VITALS: BP 111/49
[2017-10-05 04:00] VITALS: BP 122/50
[2017-10-05 04:41] LABS: BASOPHILS 0.2 % (0-2); EOSINOPHILS 0.2 % (0-7); HEMATOCRIT 29.4 % (42.0-54.0); HEMOGLOBIN 9.4 g/dL (13.5-17.5); IMMATURE GRANULOCYTES 1.5 % (0-5); LYMPHOCYTES 3.7 % (15-50); MCH 27.9 pg (26.0-34.0); MCV 87.2 fL (80.0-100.0); MEAN PLATELET VOLUME 10.2 fL (7.4-10.4); MONOCYTES 10.5 % (2-11); NEUTROPHILS 83.9 % (40-80); PLATELET COUNT 247 10x3/uL (130-400); RBC 3.37 10x6/uL (4.20-6.10); RDW 15.3 % (11.5-14.5); WBC 11.9 10x3/uL (4.8-10.8)
[2017-10-05 04:44] LABS: INR 1.22 (0.85-1.17)
[2017-10-05 04:45] LABS: APTT 40.3 SECONDS (22.8-39.4)
[2017-10-05 04:54] LABS: ALBUMIN 2.1 g/dL (3.4-5.0); BILIRUBIN - TOTAL 1.66 mg/dL (0.2-1.3); CALCIUM 8.5 mg/dL (8.5-10.1); CARBON DIOXIDE 18.4 mmol/L (21.0-32.0); CREATININE - SERUM 2.1 mg/dL (0.6-1.3); POTASSIUM - SERUM 5.4 mmol/L (3.5-5.1); PROTEIN - SERUM 7.1 g/dL (6.4-8.2)
[2017-10-05 10:27] VITALS: BP 122/45
[2017-10-05 10:31] LABS: AMYLASE - SERUM 177 U/L (25-115); LIPASE 1455 U/L (73-393)
[2017-10-05 12:50] VITALS: BP 133/55
[2017-10-05 18:18] VITALS: BP 134/57
[2017-10-05 20:00] VITALS: BP 131/60
[2017-10-06 04:00] VITALS: BP 105/73
[2017-10-06 07:01] LABS: BASOPHILS 0.1 % (0-2); EOSINOPHILS 0.4 % (0-7); HEMATOCRIT 27.2 % (42.0-54.0); IMMATURE GRANULOCYTES 1.5 % (0-5); LYMPHOCYTES 2.8 % (15-50); MCH 28.4 pg (26.0-34.0); MCHC 33.1 g/dL (31.0-37.0); MCV 85.8 fL (80.0-100.0); MEAN PLATELET VOLUME 10.2 fL (7.4-10.4); NEUTROPHILS 83.2 % (40-80); PLATELET COUNT 252 10x3/uL (130-400); RBC 3.17 10x6/uL (4.20-6.10); RDW 15.5 % (11.5-14.5)
[2017-10-06 07:34] LABS: ALBUMIN 1.9 g/dL (3.4-5.0); ANION GAP 17.9 mmol/L (8-16); BILIRUBIN - TOTAL 1.9 mg/dL (0.2-1.3); CALCIUM 8.6 mg/dL (8.5-10.1); CARBON DIOXIDE 14.9 mmol/L (21.0-32.0); CREATININE - SERUM 2.2 mg/dL (0.6-1.3); POTASSIUM - SERUM 5.8 mmol/L (3.5-5.1); PROTEIN - SERUM 6.8 g/dL (6.4-8.2)
[2017-10-06 08:46] VITALS: BP 116/44
[2017-10-06 13:10] VITALS: BP 126/57
[2017-10-06 20:00] VITALS: BP 112/45
[2017-10-06 21:10] VITALS: BP 105/34
[2017-10-07] VITALS: BP 108/47
[2017-10-07 05:15] VITALS: BP 111/45
[2017-10-07 05:42] LABS: BASOPHILS 0.2 % (0-2); HEMATOCRIT 27.2 % (42.0-54.0); IMMATURE GRANULOCYTES 1.8 % (0-5); LYMPHOCYTES 3.9 % (15-50); MCH 28.2 pg (26.0-34.0); MCHC 33.1 g/dL (31.0-37.0); MCV 85.3 fL (80.0-100.0); MEAN PLATELET VOLUME 10.4 fL (7.4-10.4); MONOCYTES 12.1 % (2-11); PLATELET COUNT 241 10x3/uL (130-400); RBC 3.19 10x6/uL (4.20-6.10); RDW 15.5 % (11.5-14.5); WBC 10.2 10x3/uL (4.8-10.8)
[2017-10-07 05:48] LABS: INR 1.54 (0.85-1.17); PROTIME 17.9 SECONDS (11.6-15.0)
[2017-10-07 05:53] LABS: ALBUMIN 1.8 g/dL (3.4-5.0); ANION GAP 18.2 mmol/L (8-16); BILIRUBIN - TOTAL 1.77 mg/dL (0.2-1.3); CALCIUM 8.4 mg/dL (8.5-10.1); CARBON DIOXIDE 15.2 mmol/L (21.0-32.0); CREATININE - SERUM 2.1 mg/dL (0.6-1.3); POTASSIUM - SERUM 5.4 mmol/L (3.5-5.1); PROTEIN - SERUM 6.6 g/dL (6.4-8.2)
[2017-10-07 08:52] VITALS: BP 114/60
[2017-10-07 12:21] VITALS: BP 118/45
[2017-10-07 15:50] VITALS: BP 135/57
[2017-10-07 19:53] VITALS: BP 134/49
[2017-10-08 00:56] VITALS: BP 124/36
[2017-10-08 04:04] VITALS: BP 128/84
[2017-10-08 06:05] LABS: BASOPHILS 0.2 % (0-2); EOSINOPHILS 1.1 % (0-7); HEMOGLOBIN 9.2 g/dL (13.5-17.5); IMMATURE GRANULOCYTES 1.2 % (0-5); LYMPHOCYTES 3.3 % (15-50); MCH 27.8 pg (26.0-34.0); MCHC 32.9 g/dL (31.0-37.0); MCV 84.6 fL (80.0-100.0); MONOCYTES 11.3 % (2-11); NEUTROPHILS 82.9 % (40-80); PLATELET COUNT 237 10x3/uL (130-400); RBC 3.31 10x6/uL (4.20-6.10); RDW 15.6 % (11.5-14.5); WBC 12.3 10x3/uL (4.8-10.8)
[2017-10-08 06:21] LABS: ALBUMIN 1.9 g/dL (3.4-5.0); ANION GAP 18.1 mmol/L (8-16); BILIRUBIN - TOTAL 1.8 mg/dL (0.2-1.3); CALCIUM 8.7 mg/dL (8.5-10.1); CARBON DIOXIDE 15.2 mmol/L (21.0-32.0); CREATININE - SERUM 2.5 mg/dL (0.6-1.3); POTASSIUM - SERUM 5.3 mmol/L (3.5-5.1); PROTEIN - SERUM 6.9 g/dL (6.4-8.2)
[2017-10-08 08:37] VITALS: BP 131/50
[2017-10-08 12:43] VITALS: BP 109/49
[2017-10-08 16:34] VITALS: BP 130/61
[2017-10-08 20:08] VITALS: BP 124/46
[2017-10-09] VITALS (12 sets, daily range): BP systolic 100–123; BP diastolic 34–52
[2017-10-09 07:13] LABS: BASOPHILS 0.2 % (0-2); EOSINOPHILS 0.9 % (0-7); HEMATOCRIT 27.9 % (42.0-54.0); HEMOGLOBIN 9.1 g/dL (13.5-17.5); IMMATURE GRANULOCYTES 1.8 % (0-5); LYMPHOCYTES 5.6 % (15-50); MCH 27.9 pg (26.0-34.0); MCHC 32.6 g/dL (31.0-37.0); MCV 85.6 fL (80.0-100.0); MEAN PLATELET VOLUME 9.3 fL (7.4-10.4); MONOCYTES 8.2 % (2-11); NEUTROPHILS 83.3 % (40-80); PLATELET COUNT 200 10x3/uL (130-400); RBC 3.26 10x6/uL (4.20-6.10); RDW 16.1 % (11.5-14.5); WBC 9.5 10x3/uL (4.8-10.8)
[2017-10-09 07:53] LABS: ALBUMIN 2.1 g/dL (3.4-5.0); ANION GAP 19.4 mmol/L (8-16); BILIRUBIN - TOTAL 1.74 mg/dL (0.2-1.3); CALCIUM 8.6 mg/dL (8.5-10.1); CARBON DIOXIDE 15.8 mmol/L (21.0-32.0); CREATININE - SERUM 2.8 mg/dL (0.6-1.3); POTASSIUM - SERUM 5.2 mmol/L (3.5-5.1); PROTEIN - SERUM 6.9 g/dL (6.4-8.2)
[2017-10-10 04:00] VITALS: BP 126/46
[2017-10-10 05:01] LABS: BASOPHILS 0.3 % (0-2); HEMATOCRIT 31.7 % (42.0-54.0); HEMOGLOBIN 10.5 g/dL (13.5-17.5); IMMATURE GRANULOCYTES 1.8 % (0-5); LYMPHOCYTES 5.4 % (15-50); MCH 28.6 pg (26.0-34.0); MCHC 33.1 g/dL (31.0-37.0); MCV 86.4 fL (80.0-100.0); MEAN PLATELET VOLUME 10.8 fL (7.4-10.4); MONOCYTES 7.7 % (2-11); NEUTROPHILS 83.8 % (40-80); PLATELET COUNT 197 10x3/uL (130-400); RBC 3.67 10x6/uL (4.20-6.10); RDW 15.8 % (11.5-14.5)
[2017-10-10 05:22] LABS: ALBUMIN 2.3 g/dL (3.4-5.0); ANION GAP 18.3 mmol/L (8-16); BILIRUBIN - TOTAL 2.32 mg/dL (0.2-1.3); CALCIUM 8.8 mg/dL (8.5-10.1); CARBON DIOXIDE 15.2 mmol/L (21.0-32.0); POTASSIUM - SERUM 5.5 mmol/L (3.5-5.1); PROTEIN - SERUM 7.2 g/dL (6.4-8.2)
[2017-10-10 08:57] VITALS: BP 126/50
[2017-10-10 12:32] VITALS: BP 116/51
[2017-10-10 16:39] VITALS: BP 124/48
[2017-10-10 20:00] VITALS: BP 125/49
[2017-10-11] VITALS: BP 116/46
[2017-10-11 04:00] VITALS: BP 113/47
[2017-10-11 06:11] LABS: BASOPHILS 0.2 % (0-2); EOSINOPHILS 1.4 % (0-7); HEMATOCRIT 30.8 % (42.0-54.0); HEMOGLOBIN 10.2 g/dL (13.5-17.5); IMMATURE GRANULOCYTES 2.1 % (0-5); LYMPHOCYTES 6.9 % (15-50); MCH 28.6 pg (26.0-34.0); MCHC 33.1 g/dL (31.0-37.0); MCV 86.3 fL (80.0-100.0); MEAN PLATELET VOLUME 10.1 fL (7.4-10.4); MONOCYTES 7.5 % (2-11); NEUTROPHILS 81.9 % (40-80); PLATELET COUNT 207 10x3/uL (130-400); RBC 3.57 10x6/uL (4.20-6.10); RDW 16.3 % (11.5-14.5); WBC 8.7 10x3/uL (4.8-10.8)
[2017-10-11 07:20] LABS: ALBUMIN 2.3 g/dL (3.4-5.0); ANION GAP 21.5 mmol/L (8-16); BILIRUBIN - TOTAL 2.2 mg/dL (0.2-1.3); CALCIUM 8.6 mg/dL (8.5-10.1); CARBON DIOXIDE 13.8 mmol/L (21.0-32.0); CREATININE - SERUM 3.5 mg/dL (0.6-1.3); POTASSIUM - SERUM 5.3 mmol/L (3.5-5.1); PROTEIN - SERUM 7.1 g/dL (6.4-8.2)
[2017-10-11 08:27] VITALS: BP 112/39
[2017-10-11 12:29] VITALS: BP 113/55
[2017-10-11 20:00] VITALS: BP 111/39
[2017-10-12 04:14] LABS: HEPATITIS C ANTIBODY <0.1 (0.0-0.9)
[2017-10-12 06:03] LABS: BASOPHILS 0.3 % (0-2); EOSINOPHILS 1.3 % (0-7); HEMATOCRIT 31.6 % (42.0-54.0); IMMATURE GRANULOCYTES 3.3 % (0-5); LYMPHOCYTES 6.7 % (15-50); MCH 27.6 pg (26.0-34.0); MCHC 31.6 g/dL (31.0-37.0); MCV 87.3 fL (80.0-100.0); MEAN PLATELET VOLUME 10.5 fL (7.4-10.4); MONOCYTES 7.9 % (2-11); NEUTROPHILS 80.5 % (40-80); PLATELET COUNT 230 10x3/uL (130-400); RBC 3.62 10x6/uL (4.20-6.10); RDW 16.6 % (11.5-14.5); WBC 9.3 10x3/uL (4.8-10.8)
[2017-10-12 06:35] LABS: ALBUMIN 2.4 g/dL (3.4-5.0); BILIRUBIN - TOTAL 2.3 mg/dL (0.2-1.3); CALCIUM 8.7 mg/dL (8.5-10.1); CREATININE - SERUM 4.2 mg/dL (0.6-1.3); PROTEIN - SERUM 6.9 g/dL (6.4-8.2)
[2017-10-12 09:15] VITALS: BP 100/39
[2017-10-12 20:24] VITALS: BP 89/34
== END 2017-10-13 01:30 | DRG 843 ==
LOC: D.MS 16:04
PROVIDERS: Family Medicine; General Practice; Internal Medicine Gastroenterology; Internal Medicine Hematology & Oncology; Internal Medicine Nephrology
PROC: 0FB23ZX Excision of Left Lobe Liver, Percutaneous Approach, Diagnostic (ICD-10-PCS; principal; 2017-10-05 11:50)
DX: C7A.8 Other malignant neuroendocrine tumors (principal); K85.90 Acute pancreatitis without necrosis or infection, unspecified; I50.33 Acute on chronic diastolic (congestive) heart failure; E43 Unspecified severe protein-calorie malnutrition; R53.2 Functional quadriplegia; R40.232 Coma scale, best motor response, extension; R40.2114 Coma scale, eyes open, never, 24 hours or more after hospital admission; R40.2214 Coma scale, best verbal response, none, 24 hours or more after hospital admission; I13.0 Hypertensive heart and chronic kidney disease with heart failure and stage 1 through stage 4 chronic kidney disease, or unspecified chronic kidney disease; N17.9 Acute kidney failure, unspecified; Z51.5 Encounter for palliative care; C7B.8 Other secondary neuroendocrine tumors; K82.8 Other specified diseases of gallbladder; I08.1 Rheumatic disorders of both mitral and tricuspid valves; Z95.0 Presence of cardiac pacemaker; N18.3 Chronic kidney disease, stage 3 (moderate); K74.60 Unspecified cirrhosis of liver; D63.8 Anemia in other chronic diseases classified elsewhere; I48.2 Chronic atrial fibrillation; I25.10 Atherosclerotic heart disease of native coronary artery without angina pectoris; E87.5 Hyperkalemia; E87.6 Hypokalemia; R19.7 Diarrhea, unspecified; T17.918A Gastric contents in respiratory tract, part unspecified causing other injury, initial encounter; R13.10 Dysphagia, unspecified; Z68.26 Body mass index [BMI] 26.0-26.9, adult